=== PATIENT | male | born 1975 | race Caucasian/White ===

== ENCOUNTER 2021-03-30 21:46 | Emergency (ER) | payer MEDICARE, SELFPAY ==
--- NOTE | 2021-03-30 21:54 | PC.NURSE ---
Pt decides not to be seen by provider. Ambulatory out of ED with steady gait.
== END 2021-03-31 02:07 | disposition left against medical advice (07) ==
DX: Z53.21 Procedure and treatment not carried out due to patient leaving prior to being seen by health care provider (principal)
CPT/HCPCS: 99199

== ENCOUNTER 2022-01-24 18:19 | Observation (INO) | payer OTHER, SELFPAY ==
[2022-01-24] VITALS (12 sets, daily range): BP systolic 108–123; BP diastolic 72–87; PULSE 55–75; RESP 16–18; TEMP 36.8–36.9; O2SAT 97–100; BMI 35.9
--- NOTE | ~2022-01-24 | CT_ITS ---
EXAMINATION: CT abdomen pelvis wo con DATE: 01/24/2022 19:16 INDICATION: epigastric pain, nauesa, hx pancreatitis TECHNIQUE: Computed tomography (CT) of the abdomen and pelvis was performed without intravenous contr ast. Automated exposure control and iterative reconstruction technique were employed. The dose-length product was 1323.13 mGy-cm. COMPARISON: None. FINDINGS: Lower thorax: Unremarkable Liver: Hepatomegaly Biliary/Gallbladder: Gallbladder is normal. No bile duct dilation. Pancreas: Edema and surrounding inflammatory change at the head and uncinate process. Spleen: Normal. Adrenals:No mass. Kidneys: No mass, stone, or hydronephrosis. GI tract: No small or large bowel dilation. Normal appendix. Diverticulosis without diverticulitis. Mesentery/Peritoneum: No ascites, mass, or free air. Retroperitoneum: No mass. Mild atherosclerotic abdominal aortic and/or arterial calcifications. Pelvis: Bladder wall thickening. Mild prostatomegaly. Soft Tissues: Soft tissues and body wall unremarkable. Bones: No acute osseous finding. IMPRESSION: Acute pancreatitis. Bladder wall thickening, correlate for history or findings of urinary outlet obst ruction or cystitis, in the absence of either, consider referral for cystoscopy. Reviewed, dictated and finalized at location K. IMPRESSION: Acute pancreatitis. Bladder wall thickening, correlate for history or findings of urinary outlet obstruction or cystitis, in the absence of either, consider r eferral for cystoscopy.
--- NOTE | ~2022-01-24 | US_ITS ---
EXAMINATION: US abdomen limited DATE: 01/25/2022 13:16 INDICATION: Recurrent pancreatitis. TECHNIQUE: Multiple grayscale and Doppler ultrasound images of the abdomen were obtained. COMPARISON: CT abdomen and pelvis 01/24/2022 FINDINGS: The visualized portions of the head and body of the pancreas are normal. The liver is alea l without focal lesion. No liver surface nodularity. There is normal flow in main portal vein. The ga llbladder is normal in size. No gallstones or gallbladder wall thickening. There is no sonographic Mu rphy sign. The common duct is normal and measures 2 mm. IMPRESSION: 1. Normal right upper quadrant ultrasound. Reviewed, dictated and finalized at location A.
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
[2022-01-24 18:56] LABS: Basophils Percent Auto 0.2 % (0.2-1.2); Eosinophils Percent Auto 0.4 % (0-4.4); Hematocrit 42.8 % (42.0-52.0); Hemoglobin 14.4 g/dL (14.0-18.0); Immature Granulocyte Absolute 0.02 K/mm3 (0.00-0.031); Immature Granulocyte Percent A 0.2 % (0-0.5); Lymphocytes Absolute Auto 1.25 K/mm3 (0.9-3.2); Lymphocytes Percent Auto 14.6 % (18.3-44.2); Mean Corpuscular HGB Conc 33.6 g/dl (32-36); Mean Corpuscular Volume 98.2 fl (80-100); Mean Platelet Volume 9.5 fl (7.4-10.4); Monocytes Absolute Auto 0.6 K/mm3 (0.1-0.6); Monocytes Percent Auto 7.5 % (2.6-8.5); Neutrophils Absolute Auto 6.6 K/mm3 (1.3-6.7); Neutrophils Percent Auto 77.1 % (45.5-73.1); Platelet Count Result 231 k/mm3 (150-375); Red Blood Count 4.36 M/mm3 (4.6-6.20); Red Cell Distribution Width 12.5 % (11.5-14.5); White Blood Count 8.6 K/mm3 (4.5-10.0)
[2022-01-24] MEDS: SODIUM CHLORIDE 0.9% IV 1,000 ML 999 ML IV CONT (19:05)
[2022-01-24] MEDS: ONDANSETRON INJ 4 MG/2 ML VIAL IV PUSH (19:05)
[2022-01-24] MEDS: MORPHINE SULFATE (*CRX) 4 MG/ML INJ IV PUSH (19:05)
--- NOTE | 2022-01-24 19:12 | PC.NURSE ---
Report received from LALO Summers. Assumed care of patient at this time. Patient in CT at this time.
[2022-01-24 19:15] LABS: Alanine Aminotransferase 28 U/L (6-50); Albumin Level 4.3 g/dL (3.5-5.1); Alkaline Phosphatase 95 U/L (38-126); Anion Gap 7 mmol/L (8-16); Aspartate Amino Transferase 23 U/L (17-59); Bilirubin,Total 0.9 mg/dL (0.2-1.3); Blood Urea Nitrogen 13 mg/dL (9-20); Calcium 9.5 mg/dL (8.4-10.2); Carbon Dioxide 29 mmol/L (22-30); Chloride 103 mmol/L (98-107); Estimated CRCL calculation 136 ml/min; Estimated Glomerular Filt Rate > 60; Glucose 131 mg/dL (65-110); Lipase 262 U/L (23-300); Sodium 139 mmol/L (137-145)
[2022-01-24 19:53] LABS: Add Urine Microscopic? NO; Appearance Urine Clear (Clear); Bilirubin Urine Negative (Negative); Blood Urine Negative (Negative); Color Urine Yellow (Yellow); Glucose Urine UA Negative (Negative); Ketones Urine Negative (Negative); Leukocyte Esterase Ur Negative LEU/UL (Negative); Nitrate Urine Negative (Negative); Protein Urine Negative (Negative); Specific Grav Ur 1.012 (1.001-1.035); Urobilinogen Urine Negative mg/dL (<2.0)
[2022-01-24] MEDS: HYDROmorphone HCL INJ (*CRX) 1 MG/ML SYR 0.5 MG IV PUSH ×2 (20:36→22:13)
[2022-01-24 20:38] LABS: Amylase 77 U/L (30-110); Lactate Dehydrogenase 147 U/L (120-246); Triglycerides 187 mg/dL (<150)
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
--- NOTE | 2022-01-24 23:30 | ADMGEN ---
This patient, John Granado, was admitted to [facility] Surg Room 330-01. Patient/family oriented to hospital policies and general routines including ID bracelet, bed and alarms, visiting hours, pain management, procedures, bathroom and other care routines, personal items, smoking policy, room service/diet, and visiting hours. Information on how to activate the Rapid Response Team has been discussed. Patient/Family are encouraged to report perceived risks to care and to ask questions if they do not understand what they are told or what they should do.
--- NOTE | 2022-01-25 01:08 | PC.NURSE ---
Pt came from home with mother with a diagnosis of pancreatitis. Pt very cooperative with intake. Pt able to answer all questions for admission. Pt A&Ox4. Pt states he has a little pain. Pt reports having this about 10 years ago. Pt states that he quit smoking 5 years ago and denies any tobacco use. Then pt stated that he vapes occasionally when he feels like he needs nicotine. Pt was listed as a sometimes smoker. Pt placed as a fall risk due to the occasional use of a cane. Will continue to monitor pt.
[2022-01-25] MEDS: HYDROmorphone HCL INJ (*CRX) 1 MG/ML SYR IV PUSH ×6 (02:10→18:04)
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
[2022-01-25] MEDS: DEXTROSE 5%/LACTATED RINGERS 1,000 ML 100 ML IV CONT (05:34)
[2022-01-25 06:46] VITALS: BP 111/79; PULSE 70; RESP 18; TEMP 36.4; O2SAT 96
[2022-01-25 07:49] LABS: Glucose Point of Care 148 mg/dl (65-105)
[2022-01-25] MEDS: ENOXAPARIN 40 MG/0.4 ML SYRINGE SUB-Q (08:05)
[2022-01-25 11:27] LABS: Glucose Point of Care 132 mg/dl (65-105)
--- NOTE | 2022-01-25 11:45 | PM.IMPN ---
Progress Note: A&P Assessment and Plan (1) Acute pancreatitis: Code(s): K85.90 - Acute pancreatitis without necrosis or infection, unspecified Status: Acute Assessment and Plan: Advance diet to clears Get RUQ ultrasound since he has recurrent pancreatitis CT shows acute pancreatitis IV fluids pain management Lipase 262 (2) Uncontrolled type 2 diabetes mellitus with hyperglycemia: Code(s): E11.65 - Type 2 diabetes mellitus with hyperglycemia Status: Acute Assessment and Plan: Accu-Cheks every 6 hours insulin sliding scale as needed Glucose is 131 Hypoglycemia protocol Trend glucose Adjust therapy as indicated (3) Morbid obesity with BMI of 40.0-44.9, adult: Code(s): E66.01 - Morbid (severe) obesity due to excess calories; Z68.41 - Body mass index [BMI] 40.0-44.9, adult Status: Acute Assessment and Plan: patient is on it diet has lost over 30 lb intentionally (4) Osteoarthritis, multiple sites: Qualifiers: Osteoarthritis type: unspecified Qualified Code(s): M15.9 - Polyosteoarthritis, unspecified Code(s): M15.9 - Polyosteoarthritis, unspecified Status: Acute Assessment and Plan: Tylenol as needed (5) Nicotine abuse: Code(s): Z72.0 - Tobacco use Status: Acute Assessment and Plan: nicotine patch as needed Time Spent With Patient Time with patient: Greater than 35 minutes Subjective Date/time seen: 01/25/22 1145 Interval history: 01/25/22 1145 Patient is having a bit of a moment today. Patient is frustrated because he wants something to drink and eat. He did state that he has had pancreatitis in the past. Right upper quadrant ultrasound has been ordered to assess further into the gallbladder. Lipase was unremarkable at 260 to. He still having 7/10 pain that wraps around to his back which could be from retention however he states that he does not feel like he has retention. Will get a post residual void. In tizanidine has been added for further comfort. 01/24/22? 20:49 ?This is a 46-year-old male with past medical history significant for morbid obesity, type diabetes mellitus, non-insulin dependent, osteoarthritis of the shoulders bilaterally.? Patient comes to the emergency room due to sudden onset of epigastric pain that started in the morning progressively got worse over the course of the day had some nausea but no vomiting, pain is localized to the epigastric area and radiates around to the back, is only relieved by pain medication, patient has not been able to eat all day secondary to these. patient denies any fevers, rigors, chills, cough, sputum production has lost 30 lb intentionally.? Preliminary workup was significant for? CT of abdomen and pelvis was reported as: IMPRESSION: Acute pancreatitis. Bladder wall thickening, correlate for history or findings of urinary outlet obstruction or cystitis, in the absence of either, consider referral for cystoscopy. Review of Systems Review of Systems: All systems reviewed & are unremarkable except as noted in HPI and below Exam Const: General: comfortable, no acute distress, well developed, alert, awake and average body habitus Nutritional Appearance: average body habitus Orientation/consciousness: patient oriented x3 HENMT: Head: normal to inspection, normocephalic and atraumatic Ears: hearing grossly normal bilaterally Face/Nose/Sinus: normal facial exam Face and sinus: normal facial exam Eyes: General: appearance normal, both eyes and all related structures Pupils: Equal, round and reactive pupils present EOM: EOMs intact bilaterally Neck: Neck: full ROM, no lymphadenopathy and no JVD Thyroid: thyroid normal Lymphatic: no lymphadenopathy noted Resp: Effort & Inspection: normal respiratory effort and able to speak in complete sentences Auscultation: clear to auscultation bilaterally Cardio: Jugular ve
[2022-01-25 17:30] VITALS: BP 123/73; PULSE 78; RESP 20; TEMP 36.1; O2SAT 97
--- NOTE | 2022-01-25 20:45 | PC.NURSE ---
patient bladder scanned at 1735. patient had 350 prior to urinating, voided in bathroom and did not measure urine output. bladder scan after void was 150.
--- NOTE | 2022-01-25 20:46 | P.PNCROSS_ITS ---
Event Note Event Note Event Note: Call received from the patient's nurse. The patient was started on a clear liq uid diet and today and has done okay with that. In fact he is feeling much better and is requesting an advance in diet. We will go ahead and transition him to a low-fat diet and discontinue IV narcotics. Acetaminophen and [place] are available if needed. If his pain returns he will need to go back to being NPO status though it sounds like he is much better and should be able to be discharged in the morning.
[2022-01-25 21:04] VITALS: BP 120/84; PULSE 73; RESP 24; TEMP 36.4; O2SAT 100
[2022-01-25] MEDS: HYDROcodone/acetaminophen (*CRX) 5-325 MG TABLET 1 TAB PO (21:49)
[2022-01-26] MEDS: HYDROcodone/acetaminophen (*CRX) 5-325 MG TABLET 1 TAB PO ×2 (03:25→09:03)
[2022-01-26 05:32] VITALS: BP 107/66; PULSE 57; RESP 20; TEMP 36.9; O2SAT 98
[2022-01-26 06:20] LABS: Glucose Point of Care 133 mg/dl (65-105)
[2022-01-26 06:40] LABS: Basophils Percent Auto 0.3 % (0.2-1.2); Eosinophils Percent Auto 0.6 % (0-4.4); Hematocrit 45.6 % (42.0-52.0); Immature Granulocyte Absolute 0.02 K/mm3 (0.00-0.031); Immature Granulocyte Percent A 0.3 % (0-0.5); Lymphocytes Absolute Auto 1.36 K/mm3 (0.9-3.2); Lymphocytes Percent Auto 21.2 % (18.3-44.2); Mean Corpuscular HGB Conc 32.9 g/dl (32-36); Mean Corpuscular Volume 100.2 fl (80-100); Mean Platelet Volume 9.7 fl (7.4-10.4); Monocytes Absolute Auto 0.6 K/mm3 (0.1-0.6); Monocytes Percent Auto 9.5 % (2.6-8.5); Neutrophils Absolute Auto 4.4 K/mm3 (1.3-6.7); Neutrophils Percent Auto 68.1 % (45.5-73.1); Platelet Count Result 247 k/mm3 (150-375); Red Blood Count 4.55 M/mm3 (4.6-6.20); Red Cell Distribution Width 12.3 % (11.5-14.5); White Blood Count 6.4 K/mm3 (4.5-10.0)
[2022-01-26 06:59] LABS: Alanine Aminotransferase 25 U/L (6-50); Albumin Level 4.4 g/dL (3.5-5.1); Alkaline Phosphatase 106 U/L (38-126); Anion Gap 10 mmol/L (8-16); Aspartate Amino Transferase 22 U/L (17-59); Bilirubin,Total 1.2 mg/dL (0.2-1.3); Blood Urea Nitrogen 10 mg/dL (9-20); Calcium 9.1 mg/dL (8.4-10.2); Carbon Dioxide 29 mmol/L (22-30); Chloride 101 mmol/L (98-107); Estimated CRCL calculation 136 ml/min; Estimated Glomerular Filt Rate > 60; Glucose 122 mg/dL (65-110); Lipase 255 U/L (23-300); Magnesium 2.1 mg/dL (1.6-2.3); Potassium 3.8 mmol/L (3.4-5.0); Sodium 140 mmol/L (137-145)
[2022-01-26 08:00] VITALS: PULSE 57; RESP 20; O2SAT 97
[2022-01-26 08:25] VITALS: O2SAT 97
--- NOTE | 2022-01-26 11:00 | PM.DS ---
DS: Admitting Diagnosis Discharge Date 01/26/22 11:00 Admitting Diagnosis Acute pancreatitis/urine outlet obstruction DS: Discharge Diagnosis Discharge Diagnosis (1) Acute pancreatitis: Code(s): K85.90 - Acute pancreatitis without necrosis or infection, unspecified Status: Acute Assessment and Plan: Advance diet to clears Get RUQ ultrasound since he has recurrent pancreatitis CT shows acute pancreatitis IV fluids pain management Lipase 255 (2) Uncontrolled type 2 diabetes mellitus with hyperglycemia: Code(s): E11.65 - Type 2 diabetes mellitus with hyperglycemia Status: Acute Assessment and Plan: Accu-Cheks every 6 hours insulin sliding scale as needed Glucose is 131 Hypoglycemia protocol Trend glucose Adjust therapy as indicated A1c 6.3 (3) Morbid obesity with BMI of 40.0-44.9, adult: Code(s): E66.01 - Morbid (severe) obesity due to excess calories; Z68.41 - Body mass index [BMI] 40.0-44.9, adult Status: Acute Assessment and Plan: patient is on it diet has lost over 30 lb intentionally (4) Osteoarthritis, multiple sites: Qualifiers: Osteoarthritis type: unspecified Qualified Code(s): M15.9 - Polyosteoarthritis, unspecified Code(s): M15.9 - Polyosteoarthritis, unspecified Status: Acute Assessment and Plan: Tylenol as needed (5) Nicotine abuse: Code(s): Z72.0 - Tobacco use Status: Acute Assessment and Plan: nicotine patch as needed (6) Bladder outlet obstruction: Code(s): N32.0 - Bladder-neck obstruction Status: Acute Assessment and Plan: Ct indicated a bladder outlet obstruction Flomax started Contacted and talked to Urology who is recommending outpatient follow up DS: Summary Hospital Course Hospital Course: Patient is a 46-year-old male with diabetes, arthritis, anxiety, hyperlipidemia who presented to the ED with complaints of epigastric pain radiating to the back. Abdominal CT showed acute pancreatitis and possible outlet obstruction. Patient was started on IV fluids. Lipase is been relatively stable in 250. Glucose has been well below 200. A1c was 6.3. Patient has been having pain control with IV pain medications however pain has subsided and patient has been able to tolerate a low-fat diet. Right upper quadrant ultrasound was performed and showed normal gallbladder. Patient feels pretty good and is ready to go. I did consult with Urology who stated that the patient can follow up outpatient for the possible obstruction. Labs and vital signs are stable at this time. Patient denies any chest pain, shortness a breath, nausea, vomiting, diarrhea, constipation, weakness or fatigue. Status at Discharge Functional status at discharge: independent ambulation Overall status at discharge: patient is progressing back to baseline Time Spent with Patient Time attestation: Total time spent providing and/or coordinating discharge services: 37 minutes Time spent: Greater than 30 minutes Specific discharge activities: Diagnostic testing, chart review, developing a treatment plan, education, care coordination documentation, physical exam, result review Exam Const: General: comfortable, no acute distress, well developed, alert, awake and average body habitus Nutritional Appearance: average body habitus Orientation/consciousness: patient oriented x3 HENMT: Head: normal to inspection, normocephalic and atraumatic Ears: hearing grossly normal bilaterally Face/Nose/Sinus: normal facial exam Face and sinus: normal facial exam Eyes: General: appearance normal, both eyes and all related structures Pupils: Equal, round and reactive pupils present EOM: EOMs intact bilaterally Neck: Neck: full ROM, no lymphadenopathy and no JVD Thyroid: thyroid normal Lymphatic: no lymphadenopathy noted Resp:
[2022-01-26 11:37] LABS: Glucose Point of Care 132 mg/dl (65-105)
[2022-01-26 11:45] LABS: Hemoglobin A1C 6.3 % (<5.7)
== END 2022-01-26 13:20 | disposition home or self-care (01) ==
LOC: ANHED 20:58 → ANH3MEDSUR 21:31
PROVIDERS: Nurse Practitioner; Physician Assistant; Admitting Provider Internal Medicine; Emergency Provider General Practice; PCP Family Medicine; Visit Provider Internal Medicine
DX: K85.90 Acute pancreatitis without necrosis or infection, unspecified (principal); E11.65 Type 2 diabetes mellitus with hyperglycemia; E66.01 Morbid (severe) obesity due to excess calories; Z68.35 Body mass index [BMI] 35.0-35.9, adult; M15.9 Polyosteoarthritis, unspecified; F17.290 Nicotine dependence, other tobacco product, uncomplicated; N32.0 Bladder-neck obstruction; E78.5 Hyperlipidemia, unspecified; F41.9 Anxiety disorder, unspecified; M47.816 Spondylosis without myelopathy or radiculopathy, lumbar region; F10.90 Alcohol use, unspecified, uncomplicated; Z79.84 Long term (current) use of oral hypoglycemic drugs; Z79.899 Other long term (current) drug therapy
CPT/HCPCS: 36415; 74176; 76705; 80053; 81003; 82150; 82948; 83036; 83605; 83615; 83690; 83735; 84478; 85025; 96361; 96372; 96374; 96375; 96376; 99285; A9270; G0378; J1170; J1650; J2270; J2405; J7030; J7121

== ENCOUNTER 2023-08-28 21:04 | Observation (INO) | payer OTHER, SELFPAY ==
--- NOTE | ~2023-08-28 | XR_ITS ---
Clinical Indication: Epigastric pain PA and lateral views of the chest: Comparison: None Findings: The lungs are clear, without evidence of focal consolidation or pleural effusion. Cardiome diastinal silhouette is within normal limits. Bones and soft tissues are unremarkable. Impression: Normal chest. Reviewed, dictated and finalized at location . Impression: Normal chest.
--- NOTE | ~2023-08-28 | US_ITS ---
EXAMINATION: US abdomen limited DATE: 08/29/2023 10:18 INDICATION: Abdominal pain. TECHNIQUE: Multiple grayscale and Doppler ultrasound images of the abdomen were obtained. COMPARISON: CT 08/28/2023 FINDINGS: The visualized portion of head of the pancreas is normal. There is diffuse hepatic steatosi s. There is normal flow in main portal vein. The gallbladder is normal in size and contains sludge. N o visible gallstones. No gallbladder wall thickening or sonographic Hoyt sign. The common duct is n ormal and measures 3 mm. IMPRESSION: 1. Gallbladder sludge. No evidence of acute cholecystitis. 2. Diffuse hepatic steatosis. Reviewed, dictated and finalized at location A.
--- NOTE | ~2023-08-28 | CT_ITS ---
Clinical Indication: Abdominal pain CT Scan of the Chest, Abdomen, and Pelvis without Contrast: Technique: Contiguous sections were acquired throughout the chest, abdomen, and pelvis without IV con trast administration. Dose reduction technique was used on this scan by utilizing automated exposure control and iterative reconstruction technique. The dose-length product (DLP) was 1920.67 mGy-cm. COMPARISON: 01/24/2022 Findings: There is no evidence of any significant mediastinal, hilar or axillary lymphadenopathy. Coronary yvette ry calcifications are present. No aortic aneurysm. There is no evidence of pleural or pericardial effusion. The lungs are clear. No pulmonary nodules or infiltrates are noted. The liver, spleen, gallbladder, adrenals and kidneys are within normal limits. There is probable mini mal inflammatory change and infiltrative change about the pancreatic tail extending towards the splen ic hilum, most compatible with findings of mild acute pancreatitis. No evidence of aortic aneurysm. No lymphadenopathy. No bowel obstruction or bowel wall thickening. There is no evidence to suggest acute appendicitis. Urinary bladder is unremarkable. No pelvic mass seen. No ascites. Impression: Mild acute pancreatitis at the pancreatic tail region. Correlate clinically. No other significant findings. Reviewed, dictated and finalized at location . Impression: Mild acute pancreatitis at the pancreatic tail region. Correlate clinically. No other significant findings.
[2023-08-28 21:24] VITALS: BP 149/85; PULSE 94; RESP 18; TEMP 36.6; O2SAT 100
[2023-08-28 21:38] LABS: Basophils Percent Auto 0.3 % (0.2-1.2); Eosinophils Percent Auto 0.3 % (0-4.4); Hematocrit 44.2 % (42.0-52.0); Immature Granulocyte Absolute 0.03 K/mm3 (0.00-0.031); Immature Granulocyte Percent A 0.4 % (0-0.5); Lymphocytes Absolute Auto 0.87 K/mm3 (0.9-3.2); Lymphocytes Percent Auto 11.2 % (18.3-44.2); Mean Corpuscular HGB Conc 36.2 g/dl (32-36); Mean Corpuscular Hemoglobin 33.6 pg (26-34); Mean Corpuscular Volume 92.9 fl (80-100); Mean Platelet Volume 9.8 fl (7.4-10.4); Monocytes Absolute Auto 0.7 K/mm3 (0.1-0.6); Monocytes Percent Auto 9.6 % (2.6-8.5); Neutrophils Absolute Auto 6.1 K/mm3 (1.3-6.7); Neutrophils Percent Auto 78.2 % (45.5-73.1); Platelet Count Result 220 k/mm3 (150-375); Red Blood Count 4.76 M/mm3 (4.6-6.20); Red Cell Distribution Width 13.1 % (11.5-14.5); White Blood Count 7.7 K/mm3 (4.5-10.0)
[2023-08-28 21:40] LABS: Appearance Urine Clear (Clear); Bilirubin Urine Negative (Negative); Blood Urine Negative (Negative); Color Urine Yellow (Yellow); Glucose Urine UA 3+ mg/dL (Negative); Ketones Urine Trace mg/dL (Negative); Leukocyte Esterase Ur Negative LEU/UL (Negative); Nitrate Urine Negative (Negative); Protein Urine Negative (Negative); Urobilinogen Urine 0.2 mg/dL (<2.0); pH Urine 5.5 (5.0-9.0)
[2023-08-28 21:52] LABS: Add Urine Microscopic? NO
--- NOTE | 2023-08-28 23:07 | ECG_ITS ---
SEE SCANNED COPY FOR CONFIRMED REPORT MTDD
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
[2023-08-28] MEDS: SODIUM CHLORIDE 0.9% IV 1,000 ML 999 ML IV CONT (23:22)
[2023-08-28] MEDS: ONDANSETRON INJ 4 MG/2 ML VIAL IV PUSH (23:22)
[2023-08-28] MEDS: MORPHINE SULFATE (*CRX) 4 MG/ML INJ IV PUSH (23:22)
[2023-08-29] VITALS (7 sets, daily range): BP systolic 115–136; BP diastolic 69–85; PULSE 88–100; RESP 14–20; TEMP 36.4–37.7; O2SAT 95–100; BMI 41.3
[2023-08-29] MEDS: HYDROmorphone HCL INJ (*CRX) 1 MG/ML SYR 0.5 MG IV PUSH ×2 (00:22→03:46)
[2023-08-29 02:17] LABS: Lactic Acid Reflex 0.7 mmol/L (0.7-2.0)
[2023-08-29 02:52] LABS: INR 0.9; Prothrombin Time 12.6 Seconds (11.1-14.7)
[2023-08-29 02:53] LABS: Partial Thromboplastin Time 25.4 Seconds (22.3-36.8)
[2023-08-29 03:10] LABS: Troponin I < 0.012 ng/mL (0.000-0.034)
[2023-08-29 03:11] LABS: Alanine Aminotransferase 26 U/L (6-50); Albumin Level 3.9 g/dL (3.5-5.1); Alkaline Phosphatase 99 U/L (38-126); Anion Gap 9 mmol/L (4-12); Aspartate Amino Transferase 26 U/L (17-59); Bilirubin,Total 1.2 mg/dL (0.2-1.3); Blood Urea Nitrogen 11 mg/dL (9-20); Calcium 8.6 mg/dL (8.4-10.2); Carbon Dioxide 19 mmol/L (22-30); Chloride 103 mmol/L (98-107); Estimated CRCL calculation 163 ml/min; Estimated Glomerular Filt Rate > 60; Glucose 273 mg/dL (65-110); Potassium 4.2 mmol/L (3.4-5.0); Sodium 131 mmol/L (137-145)
[2023-08-29] MEDS: SODIUM CHLORIDE 0.9% IV 1,000 ML 999 ML IV CONT (03:46)
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
--- NOTE | 2023-08-29 04:50 | ADMGEN ---
This patient, John Granado, was admitted to [facility] Surg Room 331-02. Patient/family oriented to hospital policies and general routines including ID bracelet, bed and alarms, visiting hours, pain management, procedures, bathroom and other care routines, personal items, smoking policy, room service/diet, and visiting hours. Information on how to activate the Rapid Response Team has been discussed. Patient/Family are encouraged to report perceived risks to care and to ask questions if they do not understand what they are told or what they should do.
[2023-08-29 04:56] LABS: Lipase 801 U/L (23-300)
[2023-08-29 04:57] LABS: Triglycerides 2251 mg/dL (<150)
[2023-08-29] MEDS: HYDROmorphone HCL INJ (*CRX) 1 MG/ML SYR IV PUSH ×4 (05:13→17:00)
[2023-08-29] MEDS: SODIUM CHLORIDE 0.9% IV 1,000 ML 125 ML IV CONT ×2 (05:16→17:18)
[2023-08-29 08:12] LABS: Glucose Point of Care 277 mg/dl (65-105)
[2023-08-29] MEDS: FENOFIBRATE 160 MG TABLET PO (08:41)
[2023-08-29] MEDS: INSULIN ASPART (*BKC) 100 UNITS/ML SUB-Q ×3 (08:41→18:26)
[2023-08-29] MEDS: ATORVASTATIN 40 MG TABLET PO (08:41)
[2023-08-29 11:44] LABS: Glucose Point of Care 229 mg/dl (65-105)
[2023-08-29] MEDS: ENOXAPARIN 40 MG/0.4 ML SYRINGE SUB-Q (11:46)
[2023-08-29 12:13] LABS: Alanine Aminotransferase 23 U/L (6-50); Albumin Level 3.8 g/dL (3.5-5.1); Alkaline Phosphatase 97 U/L (38-126); Anion Gap 5 mmol/L (4-12); Aspartate Amino Transferase 24 U/L (17-59); Bilirubin,Total 1.4 mg/dL (0.2-1.3); Blood Urea Nitrogen 9 mg/dL (9-20); Calcium 8.5 mg/dL (8.4-10.2); Carbon Dioxide 24 mmol/L (22-30); Chloride 102 mmol/L (98-107); Estimated CRCL calculation 165 ml/min; Estimated Glomerular Filt Rate > 60; Glucose 218 mg/dL (65-110); Lipase 430 U/L (23-300); Potassium 4.1 mmol/L (3.4-5.0); Sodium 131 mmol/L (137-145)
[2023-08-29 13:29] LABS: Hemoglobin A1C 11.5 % (<5.7)
--- NOTE | 2023-08-29 14:38 | PM.IMPN ---
Progress Note: A&P Assessment and Plan (1) Pancreatitis: Qualifiers: Acute pancreatitis complication: no infection or necrosis Chronicity: acute Pancreatitis type: unspecified pancreatitis type Qualified Code(s): K85.90 - Acute pancreatitis without necrosis or infection, unspecified Code(s): K85.90 - Acute pancreatitis without necrosis or infection, unspecified Status: Acute Assessment and Plan: Patient presents with abdominal pain. Lipase was 800. LFTs are normal. CT of the abdomen and pelvis showed mild acute pancreatitis at the pancreatic tail region but no other significant abnormalities. RUQ US shows gallbladder sludge no evidence of acute cholecystitis. He does have diffuse hepatic steatosis. Triglycerides 2250 probably related to uncontrolled DM. He denies drinking alcohol. Suspected etiology of pancreatitis related to hypertriglyceridemia. Lipase trending downward. Will add fenofibrate and Lipitor. Start clear liquid diet (2) Uncontrolled type 2 diabetes mellitus with hyperglycemia: Code(s): E11.65 - Type 2 diabetes mellitus with hyperglycemia Status: Acute Assessment and Plan: A1c 11.5. The patient's blood glucose was reviewed on 08/28 Glucose remains poorly controlled Continue AccuCheks covering with sliding scale. Hypoglycemia protocol available as needed. Continue to monitor. Hold glipizide and metformin for now Had Lantus. diesel powerplant mechanic and dietitian consult (3) Morbid obesity with BMI of 40.0-44.9, adult: Code(s): E66.01 - Morbid (severe) obesity due to excess calories; Z68.41 - Body mass index [BMI] 40.0-44.9, adult Status: Acute Assessment and Plan: This is contributing to his other medical problems. Healthy lifestyle choices were discussed (4) Osteoarthritis, multiple sites: Qualifiers: Osteoarthritis type: unspecified Qualified Code(s): M15.9 - Polyosteoarthritis, unspecified Code(s): M15.9 - Polyosteoarthritis, unspecified Status: Acute Assessment and Plan: Tylenol p.r.n. (5) TABATHA (obstructive sleep apnea): Code(s): G47.33 - Obstructive sleep apnea (adult) (pediatric) Status: Acute Assessment and Plan: Patient states he feels tired all the time. Explain that it most likely is related to his untreated sleep apnea. Offered to start Auto-PAP here for but he declines. (6) Tobacco abuse: Code(s): Z72.0 - Tobacco use Status: Acute Assessment and Plan: Patient was educated about the benefits of smoking cessation Plan DVT prophylaxis -Lovenox Code status -full Subjective Date/time seen: 08/29/23 14:38 Interval history: 48yo male with DM, tobacco abuse and anxiety here for abdominal pain. Patient feels tired today. He slept poorly last night. His abdominal pain is 5/10. No chest pain or shortness of breath. He is having nausea but no vomiting. No cough. He initially states he has has chronic diarrhea but then states he has bowel movements once every 1-2 weeks. Deneis stool accidents Exam Narrative: AF 97.6 131/77 95 18 99% ra Gen - NARD Chest - CTA bilaterally, nml RR CV - RRR S1/S2 Abd - Soft, obese, iffusely tender Ext - No pedal edema. 2+ PT pulses bilaterally. Neuro - Alert and oriented. Nonfocal exam. Psych - Nml mood and affect Skin - Warm and dry Objective Data Vital Signs Vital Signs: Vital Signs - 24 hr 08/28/23 21:24 08/29/23 01:33 08/29/23 03:47 Temperature 97.9 F Pulse Rate 94 100 88 Respiratory Rate 18 15 14 Blood Pressure 149/85 H 123/84 136/85 Pulse Oximetry 100 100 99 Oxygen Delivery Room Air 08/29/23 04:28 08/29/23 04:58 08/29/23 05:28 Temperature 97.6 F Pulse Rate 99 95 Respiratory Rate 15 18 Blood Pressure 135/80 131/77 Pulse Oximetry 99 99 Oxygen Delivery Room Air Intake/Output Intake/Output: Intake & Output 08/26/23 08/27/23 08/28/23
[2023-08-29] MEDS: ONDANSETRON INJ 4 MG/2 ML VIAL IV PUSH (17:00)
[2023-08-29 17:05] LABS: Glucose Point of Care 298 mg/dl (65-105)
[2023-08-29 18:27] LABS: Glucose Point of Care 307 mg/dl (65-105)
[2023-08-29 20:08] LABS: Glucose Point of Care 237 mg/dl (65-105)
[2023-08-29] MEDS: INSULIN GLARGINE (*BKC) 100 UNITS/ML 10 UNITS SUB-Q (20:24)
[2023-08-29] MEDS: HYDROcodone/acetaminophen (*CRX) 5-325 MG TABLET 1 TAB PO (23:30)
[2023-08-30 05:24] VITALS: BP 112/60; PULSE 93; RESP 16; TEMP 36.3; O2SAT 95
[2023-08-30] MEDS: SODIUM CHLORIDE 0.9% IV 1,000 ML 70 ML IV CONT ×2 (05:27→18:05)
[2023-08-30] MEDS: HYDROcodone/acetaminophen (*CRX) 5-325 MG TABLET 1 TAB PO ×3 (05:28→20:47)
[2023-08-30 06:42] LABS: Basophils Percent Auto 0.1 % (0.2-1.2); Eosinophils Percent Auto 0.2 % (0-4.4); Hematocrit 45.4 % (42.0-52.0); Immature Granulocyte Absolute 0.04 K/mm3 (0.00-0.031); Immature Granulocyte Percent A 0.4 % (0-0.5); Lymphocytes Absolute Auto 0.63 K/mm3 (0.9-3.2); Lymphocytes Percent Auto 6.9 % (18.3-44.2); Mean Corpuscular Hemoglobin 32.5 pg (26-34); Mean Corpuscular Volume 98.3 fl (80-100); Mean Platelet Volume 9.8 fl (7.4-10.4); Monocytes Absolute Auto 0.9 K/mm3 (0.1-0.6); Monocytes Percent Auto 9.8 % (2.6-8.5); Neutrophils Absolute Auto 7.5 K/mm3 (1.3-6.7); Neutrophils Percent Auto 82.6 % (45.5-73.1); Platelet Count Result 186 k/mm3 (150-375); Red Blood Count 4.62 M/mm3 (4.6-6.20); Red Cell Distribution Width 13.1 % (11.5-14.5); White Blood Count 9.1 K/mm3 (4.5-10.0)
[2023-08-30 07:00] LABS: Alanine Aminotransferase 19 U/L (6-50); Alkaline Phosphatase 110 U/L (38-126); Anion Gap 9 mmol/L (4-12); Aspartate Amino Transferase 20 U/L (17-59); Blood Urea Nitrogen 6 mg/dL (9-20); Calcium 8.9 mg/dL (8.4-10.2); Carbon Dioxide 21 mmol/L (22-30); Chloride 103 mmol/L (98-107); Cholesterol 273 mg/dL (0-200); Estimated CRCL calculation 165 ml/min; Estimated Glomerular Filt Rate > 60; Glucose 225 mg/dL (65-110); Lipase 254 U/L (23-300); Potassium 3.9 mmol/L (3.4-5.0); Sodium 133 mmol/L (137-145)
[2023-08-30 07:10] LABS: LDL Cholesterol Direct 45 mg/dL
[2023-08-30 07:12] LABS: Triglycerides 816 mg/dL (<150)
[2023-08-30 07:44] LABS: Glucose Point of Care 228 mg/dl (65-105)
[2023-08-30 08:00] VITALS: RESP 22; O2SAT 98
[2023-08-30] MEDS: ATORVASTATIN 40 MG TABLET PO (09:31)
[2023-08-30] MEDS: FENOFIBRATE 160 MG TABLET PO (09:31)
[2023-08-30] MEDS: INSULIN ASPART (*BKC) 100 UNITS/ML SUB-Q ×3 (09:32→18:00)
[2023-08-30] MEDS: ENOXAPARIN 40 MG/0.4 ML SYRINGE SUB-Q (09:32)
[2023-08-30 11:27] LABS: Glucose Point of Care 228 mg/dl (65-105)
--- NOTE | 2023-08-30 13:15 | PM.IMPN ---
Progress Note: A&P Assessment and Plan (1) Pancreatitis: Qualifiers: Acute pancreatitis complication: no infection or necrosis Chronicity: acute Pancreatitis type: unspecified pancreatitis type Qualified Code(s): K85.90 - Acute pancreatitis without necrosis or infection, unspecified Code(s): K85.90 - Acute pancreatitis without necrosis or infection, unspecified Status: Acute Assessment and Plan: Patient presents with abdominal pain. Lipase was 800. LFTs are normal. CT of the abdomen and pelvis showed mild acute pancreatitis at the pancreatic tail region but no other significant abnormalities. RUQ US shows gallbladder sludge no evidence of acute cholecystitis. He does have diffuse hepatic steatosis. Triglycerides 2250 probably related to uncontrolled DM. He denies drinking alcohol. Suspected etiology of pancreatitis related to hypertriglyceridemia. Lipase trending downward. Will add fenofibrate and Lipitor. advance diet from clears to dm diet (2) Uncontrolled type 2 diabetes mellitus with hyperglycemia: Code(s): E11.65 - Type 2 diabetes mellitus with hyperglycemia Status: Acute Assessment and Plan: A1c 11.5. The patient's blood glucose was reviewed on 08/28 Glucose remains poorly controlled Continue AccuCheks covering with sliding scale. Hypoglycemia protocol available as needed. Continue to monitor. Hold glipizide and metformin for now Had Lantus. director social welfare and dietitian consult (3) Morbid obesity with BMI of 40.0-44.9, adult: Code(s): E66.01 - Morbid (severe) obesity due to excess calories; Z68.41 - Body mass index [BMI] 40.0-44.9, adult Status: Acute Assessment and Plan: This is contributing to his other medical problems. Healthy lifestyle choices were discussed (4) Osteoarthritis, multiple sites: Qualifiers: Osteoarthritis type: unspecified Qualified Code(s): M15.9 - Polyosteoarthritis, unspecified Code(s): M15.9 - Polyosteoarthritis, unspecified Status: Acute Assessment and Plan: Tylenol p.r.n. (5) TABATHA (obstructive sleep apnea): Code(s): G47.33 - Obstructive sleep apnea (adult) (pediatric) Status: Acute Assessment and Plan: Patient states he feels tired all the time. Explain that it most likely is related to his untreated sleep apnea. Offered to start Auto-PAP here for but he declines. (6) Tobacco abuse: Code(s): Z72.0 - Tobacco use Status: Acute Assessment and Plan: Patient was educated about the benefits of smoking cessation Subjective Date/time seen: 08/30/23 13:15 Interval history: 48yo male with DM, tobacco abuse and anxiety here for abdominal pain. pt admitted for pancreatis complains of headache today not had a bm for a few days Review of Systems Review of Systems: constipation and ARTHUR Exam Narrative: GEn: younger male tired with headache Chest - CTA bilaterally, nml RR CV - RRR S1/S2 Abd - Soft, obese, iffusely tender Ext - No pedal edema. 2+ PT pulses bilaterally. Neuro - Alert and oriented. Nonfocal exam. Psych - Nml mood and affect Skin - Warm and dry Objective Data Vital Signs Vital Signs: Vital Signs - 24 hr 08/29/23 14:00 08/29/23 20:12 08/30/23 05:24 Temperature 37.7 C H 36.4 C 36.3 C L Pulse Rate 94 97 93 Respiratory Rate 20 16 16 Blood Pressure 136/85 115/69 112/60 Pulse Oximetry 97 95 95 Intake/Output Intake/Output: Intake & Output 08/27/23 08/28/23 08/29/23 08/30/23 23:59 23:59 23:59 23:59 Intake Total 4065.4 1354.6 Output Total 0 2175 Balance 4065.4 -820.4 Meds/Results Medications: Active Medications Generic Name Dose Route Start Last Admin Trade Name Freq PRN Reason Stop Dose Admin Acetaminophen 650 mg 08/29/23 14:54 Acetaminophen 325 Mg Tablet PO Q6H PRN Mild Pain (1-3) or Fever Hydrocodone Bitart/Acetaminophen 1 tab
[2023-08-30 14:00] VITALS: BP 125/85; PULSE 110; RESP 22; TEMP 36.1; O2SAT 98
[2023-08-30 15:41] LABS: Anion Gap 7 mmol/L (4-12); Blood Urea Nitrogen 9 mg/dL (9-20); Calcium 9.3 mg/dL (8.4-10.2); Carbon Dioxide 24 mmol/L (22-30); Chloride 103 mmol/L (98-107); Estimated CRCL calculation 165 ml/min; Estimated Glomerular Filt Rate > 60; Glucose 274 mg/dL (65-110); Lipase 235 U/L (23-300); Potassium 4.2 mmol/L (3.4-5.0); Sodium 134 mmol/L (137-145)
[2023-08-30 16:23] LABS: Glucose Point of Care 263 mg/dl (65-105)
[2023-08-30 18:00] VITALS: TEMP 37.8
[2023-08-30] MEDS: ACETAMINOPHEN 325 MG TABLET 650 MG PO (18:00)
[2023-08-30 20:26] LABS: Glucose Point of Care 295 mg/dl (65-105)
[2023-08-30] MEDS: INSULIN GLARGINE (*BKC) 100 UNITS/ML 10 UNITS SUB-Q (20:46)
[2023-08-30] MEDS: DOCUSATE SODIUM 100 MG CAPSULE PO (20:47)
[2023-08-30 20:55] VITALS: BP 126/83; PULSE 104; RESP 18; TEMP 36.9; O2SAT 96
[2023-08-31] MEDS: SODIUM CHLORIDE 0.9% IV 1,000 ML 70 ML IV CONT (04:40)
[2023-08-31 05:33] VITALS: BP 135/79; PULSE 92; RESP 18; TEMP 36.7; O2SAT 97
[2023-08-31] MEDS: HYDROcodone/acetaminophen (*CRX) 5-325 MG TABLET 1 TAB PO (05:39)
[2023-08-31 05:40] LABS: Anion Gap 9 mmol/L (4-12); Blood Urea Nitrogen 9 mg/dL (9-20); Calcium 8.7 mg/dL (8.4-10.2); Carbon Dioxide 23 mmol/L (22-30); Chloride 104 mmol/L (98-107); Estimated CRCL calculation 165 ml/min; Estimated Glomerular Filt Rate > 60; Glucose 214 mg/dL (65-110); Lipase 194 U/L (23-300); Sodium 136 mmol/L (137-145)
[2023-08-31 08:03] LABS: Glucose Point of Care 217 mg/dl (65-105)
[2023-08-31] MEDS: FENOFIBRATE 160 MG TABLET PO (08:29)
[2023-08-31] MEDS: DOCUSATE SODIUM 100 MG CAPSULE PO (08:29)
[2023-08-31] MEDS: ATORVASTATIN 40 MG TABLET PO (08:30)
[2023-08-31] MEDS: INSULIN ASPART (*BKC) 100 UNITS/ML SUB-Q ×2 (08:30→11:55)
[2023-08-31 11:47] LABS: Glucose Point of Care 268 mg/dl (65-105)
--- NOTE | 2023-08-31 13:05 | PM.DS ---
DS: Admitting Diagnosis Discharge Date 08/31/2023 Admitting Diagnosis Abdominal pain DS: Discharge Diagnosis Discharge Diagnosis (1) Pancreatitis: Qualifiers: Acute pancreatitis complication: no infection or necrosis Chronicity: acute Pancreatitis type: unspecified pancreatitis type Qualified Code(s): K85.90 - Acute pancreatitis without necrosis or infection, unspecified Code(s): K85.90 - Acute pancreatitis without necrosis or infection, unspecified Status: Acute Assessment and Plan: Patient presents with abdominal pain. Lipase was 800. LFTs are normal. CT of the abdomen and pelvis showed mild acute pancreatitis at the pancreatic tail region but no other significant abnormalities. RUQ US shows gallbladder sludge no evidence of acute cholecystitis. He does have diffuse hepatic steatosis. Triglycerides 2250 probably related to uncontrolled DM. He denies drinking alcohol. Suspected etiology of pancreatitis related to hypertriglyceridemia. Lipase trending downward. Will add fenofibrate and Lipitor. advance diet from clears to dm diet pt is doing better ok to DC today (2) Uncontrolled type 2 diabetes mellitus with hyperglycemia: Code(s): E11.65 - Type 2 diabetes mellitus with hyperglycemia Status: Acute Assessment and Plan: A1c 11.5. The patient's blood glucose was reviewed on 08/28 Glucose remains poorly controlled Continue AccuCheks covering with sliding scale. Hypoglycemia protocol available as needed. Continue to monitor. Hold glipizide and metformin for now Had Lantus. clinical trial educator and dietitian consult lantus 10units scripted on DC Lantus pen issued on DC (3) Morbid obesity with BMI of 40.0-44.9, adult: Code(s): E66.01 - Morbid (severe) obesity due to excess calories; Z68.41 - Body mass index [BMI] 40.0-44.9, adult Status: Acute Assessment and Plan: This is contributing to his other medical problems. Healthy lifestyle choices were discussed (4) Osteoarthritis, multiple sites: Qualifiers: Osteoarthritis type: unspecified Qualified Code(s): M15.9 - Polyosteoarthritis, unspecified Code(s): M15.9 - Polyosteoarthritis, unspecified Status: Acute Assessment and Plan: Tylenol p.r.n. (5) TABATHA (obstructive sleep apnea): Code(s): G47.33 - Obstructive sleep apnea (adult) (pediatric) Status: Acute Assessment and Plan: Patient states he feels tired all the time. Explain that it most likely is related to his untreated sleep apnea. Offered to start Auto-PAP here for but he declines. (6) Tobacco abuse: Code(s): Z72.0 - Tobacco use Status: Acute Assessment and Plan: Patient was educated about the benefits of smoking cessation DS: Summary Hospital Course Hospital Course: 48yo male with DM, tobacco abuse and anxiety here for abdominal pain. Pt admitted for pancreatis Pt doing better ok to Dc today Pt tolerating a diet pt hbaic is high pt discharged on lantus pen 10 units at night Time Spent with Patient Time attestation: Total time spent providing and/or coordinating discharge services:45 minutes on day of dc Exam Narrative: GEn: younger male tired with headache Chest - CTA bilaterally, nml RR CV - RRR S1/S2 Abd - Soft, obese, iffusely tender Ext - No pedal edema. 2+ PT pulses bilaterally. Neuro - Alert and oriented. Nonfocal exam. Psych - Nml mood and affect Skin - Warm and dry DS: Data Data Completed and Pending Labs on day of discharge: Labs from last 24 hours 08/31/23 08/31/23 08/31/23 11:37 07:43 04:56 Sodium 136 L Potassium 4.0 Chloride 104 Carbon Dioxide 23 Anion Gap 9 BUN 9 Creatinine 0.60 L Estim Creat Clear Calc 165 Estimated GFR > 60 Glucose 214 H POC Capillary Glucose 268 H 217 H Calcium 8.7 Lipase 194 08/30/23 08/30/23 08/30/23 20:05 16:10 15:21 Sodium
== END 2023-08-31 13:45 | disposition home or self-care (01) ==
LOC: ANHED 08-29 03:19 → ANH3MEDSUR 08-29 04:29
PROVIDERS: Emergency Medicine; Internal Medicine; Admitting Provider Internal Medicine; Emergency Provider Physician Assistant; PCP Family Medicine; Visit Provider Family Medicine
DX: K85.90 Acute pancreatitis without necrosis or infection, unspecified (principal); E11.65 Type 2 diabetes mellitus with hyperglycemia; M15.9 Polyosteoarthritis, unspecified; G47.33 Obstructive sleep apnea (adult) (pediatric); E78.5 Hyperlipidemia, unspecified; F41.9 Anxiety disorder, unspecified; F17.290 Nicotine dependence, other tobacco product, uncomplicated; F17.220 Nicotine dependence, chewing tobacco, uncomplicated; E66.01 Morbid (severe) obesity due to excess calories; Z68.41 Body mass index [BMI] 40.0-44.9, adult; Z79.84 Long term (current) use of oral hypoglycemic drugs
CPT/HCPCS: 36415; 71046; 71250; 74176; 76705; 80048; 80053; 80061; 81003; 82948; 83036; 83605; 83690; 84443; 84478; 84484; 85025; 85610; 85730; 93005; 96361; 96374; 96375; 96376; 99285; A9270; G0378; J1170; J1650; J1815; J2270; J2405; J7030

== ENCOUNTER 2024-01-04 23:31 | Inpatient (IN) | payer OTHER, SELFPAY ==
--- NOTE | ~2024-01-04 | US_ITS ---
EXAMINATION: US abdomen limited DATE: 01/05/2024 09:35 INDICATION: Pancreatitis. TECHNIQUE: Multiple grayscale and Doppler ultrasound images of the abdomen were obtained. COMPARISON: CT abdomen and pelvis 01/05/2024 FINDINGS: The visualized portions of the head and body of the pancreas are normal. There is diffuse h epatic steatosis. There is normal flow in main portal vein. The gallbladder is normal in size. No gal lstones or gallbladder wall thickening. There is no sonographic Hoyt's sign. The common duct is nor mal and measures 3 mm. IMPRESSION: 1. Normal visualized portion of the pancreas. Note that ultrasound has poor sensitivity for pancreati tis. 2. Diffuse hepatic steatosis. Reviewed, dictated and finalized at location A. IMPRESSION: 1. Normal visualized portion of the pancreas. Note that ultrasound has poor sen sitivity for pancreatitis. 2. Diffuse hepatic steatosis.
--- NOTE | ~2024-01-04 | CT_ITS ---
Non-contrast CT scan of the Abdomen and Pelvis Clinical indication: Abdominal pain Technique: 2.5 mm axial scans were obtained through the abdomen and pelvis without intravenous or or al contrast. Dose reduction technique was used on this scan by utilizing automated exposure control a nd iterative reconstruction technique. The dose-length product (DLP) was 1795.70 mGy-cm. COMPARISON: 08/28/2023 Findings: Images through the lung bases reveal no abnormalities. There is no evidence of renal or ureteral calculi. The kidneys and the ureters are nondilated. The liver, spleen, gallbladder, and adrenals appear normal. Probable minimal edematous change of the pancreatic body with minimal peripancreatic stranding. There is no aortic aneurysm. There is no evidence of bowel obstruction. Images through the pelvis were performed. There is no evidence of ascites or lymphadenopathy. Urinary bladder unremarkable. No pelvic mass seen. Impression: Findings suggestive of very mild acute pancreatitis. Correlate clinically. Reviewed, dictated and finalized at [facility]. Impression: Findings suggestive of very mild acute pancreatitis. Correlate clinically.
[2024-01-04 23:28] VITALS: BP 150/104; PULSE 84; RESP 16; TEMP 36.6; O2SAT 97
[2024-01-04 23:45] LABS: Basophils Percent Auto 0.4 % (0.2-1.2); Eosinophils Percent Auto 0.6 % (0-4.4); Hematocrit 44.2 % (42.0-52.0); Hemoglobin 16.3 g/dL (14.0-18.0); Immature Granulocyte Absolute 0.04 K/mm3 (0.00-0.031); Immature Granulocyte Percent A 0.6 % (0-0.5); Lymphocytes Absolute Auto 1.57 K/mm3 (0.9-3.2); Lymphocytes Percent Auto 21.7 % (18.3-44.2); Mean Corpuscular HGB Conc 36.9 g/dl (32-36); Mean Corpuscular Hemoglobin 34.2 pg (26-34); Mean Corpuscular Volume 92.7 fl (80-100); Mean Platelet Volume 9.2 fl (7.4-10.4); Monocytes Absolute Auto 0.8 K/mm3 (0.1-0.6); Monocytes Percent Auto 10.5 % (2.6-8.5); Neutrophils Absolute Auto 4.8 K/mm3 (1.3-6.7); Neutrophils Percent Auto 66.2 % (45.5-73.1); Platelet Count Result 242 k/mm3 (150-375); Red Blood Count 4.77 M/mm3 (4.6-6.20); Red Cell Distribution Width 12.7 % (11.5-14.5); White Blood Count 7.3 K/mm3 (4.5-10.0)
[2024-01-04] MEDS: SODIUM CHLORIDE 0.9% IV 1,000 ML 999 ML IV CONT (23:45)
[2024-01-04] MEDS: ONDANSETRON INJ 4 MG/2 ML VIAL IV PUSH (23:45)
[2024-01-04] MEDS: MORPHINE SULFATE (*CRX) 4 MG/ML INJ IV PUSH (23:45)
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
[2024-01-04 23:56] LABS: Alanine Aminotransferase 29 U/L (6-50); Albumin Level 4.2 g/dL (3.5-5.1); Alkaline Phosphatase 112 U/L (38-126); Aspartate Amino Transferase 26 U/L (17-59); Blood Urea Nitrogen 16 mg/dL (9-20); Carbon Dioxide 22 mmol/L (22-30); Chloride 98 mmol/L (98-107); Estimated CRCL calculation 109 ml/min; Estimated Glomerular Filt Rate > 60; Glucose 410 mg/dL (65-110); Lactic Acid Reflex 1.8 mmol/L (0.7-2.0)
[2024-01-04 23:57] LABS: Anion Gap 13 mmol/L (4-12); Bilirubin,Total 0.8 mg/dL (0.2-1.3); Potassium 4.1 mmol/L (3.4-5.0); Sodium 133 mmol/L (137-145)
[2024-01-04 23:58] VITALS: BP 128/68; PULSE 89; RESP 15; O2SAT 92
[2024-01-05] VITALS (7 sets, daily range): BP systolic 130–150; BP diastolic 64–88; PULSE 80–93; RESP 15–19; TEMP 36.4–36.6; O2SAT 88–100; BMI 24.7; BMI 40.9
--- NOTE | 2024-01-05 00:03 | ECG_ITS ---
Test Date: 2024-01-05 00:03:14 Measurements Intervals Doon Rate: 68 P: 64 NV: 163 QRS: 36 QRSD: 86 T: 11 QT: 382 QTc: 407 Interpretive Statements SINUS RHYTHM WITH OCCASIONAL VENTRICULAR PREMATURE COMPLEXES BORDERLINE ST-T WAVE ABNORMALITY- INFERIOR LEADS BASELINE ARTIFACT- I, II, III, AVR, AVL, AVF BORDERLINE ECG No previous ECG available for comparison Electronically Signed On 01-05-2024 07:50:40 CDT by Vitor Baez D.O.
[2024-01-05 00:42] LABS: Lipase 13728 U/L (23-300)
[2024-01-05] MEDS: HYDROmorphone HCL INJ (*CRX) 1 MG/ML SYR 0.5 MG IV PUSH ×5 (01:17→16:59)
[2024-01-05] MEDS: SODIUM CHLORIDE 0.9% IV 1,000 ML 999 ML IV CONT (01:18)
[2024-01-05 01:23] LABS: Ethanol < 10 mg/dL (<10)
[2024-01-05 01:26] LABS: Magnesium 1.9 mg/dL (1.6-2.3)
[2024-01-05 01:34] LABS: Add Urine Microscopic? NO; Appearance Urine Clear (Clear); Bilirubin Urine Negative (Negative); Blood Urine Negative (Negative); Color Urine Yellow (Yellow); Glucose Urine UA 3+ mg/dL (Negative); Ketones Urine 1+ mg/dL (Negative); Leukocyte Esterase Ur Negative LEU/UL (Negative); Nitrate Urine Negative (Negative); Protein Urine Negative (Negative); Specific Grav Ur 1.035 (1.001-1.035); Urobilinogen Urine 0.2 mg/dL (<2.0); pH Urine 5.5 (5.0-9.0)
[2024-01-05 01:46] LABS: Triglycerides 2373 mg/dL (<150)
[2024-01-05 01:51] LABS: Amphetamine Screen Urine Negative (Negative); Barbiturate Screen Urine Negative (Negative); Benzodiazepines Screen Urine Negative (Negative); Cannabinoid Screen Urine Negative (Negative); Cocaine Screen Urine Negative (Negative); Methadone Screen Urine Negative (Negative); Opiate Screen Urine Positive (Negative); Phencyclidine Screen Urine Negative (Negative)
[2024-01-05] MEDS: SODIUM CHLORIDE 0.9% IV 1,000 ML 200 ML IV CONT ×3 (02:33→12:15)
[2024-01-05 02:37] LABS: Glucose Point of Care 368 mg/dl (65-105)
[2024-01-05] MEDS: INSULIN HUMAN REGULAR (*BKC) 100 UNITS/ML 6 UNITS IV PUSH (02:59)
[2024-01-05 03:10] LABS: Hemoglobin A1C 11.4 % (<5.7)
--- NOTE | 2024-01-05 04:03 | ADMGEN ---
This patient, John Granado, was admitted to 2 Medical Room 259-01. Patient/family oriented to hospital policies and general routines including ID bracelet, bed and alarms, visiting hours, pain management, procedures, bathroom and other care routines, personal items, smoking policy, room service/diet, and visiting hours. Information on how to activate the Rapid Response Team has been discussed. Patient/Family are encouraged to report perceived risks to care and to ask questions if they do not understand what they are told or what they should do. PT STATES HE DOES NOT TAKE ANY MEDS ANYMORE OTHER THAN GLIPIZIDE AND METFORMIN. STATES IS SUPPOSED TO TAKE INSULIN BUT DOESNT
--- NOTE | 2024-01-05 04:11 | PC.NURSE ---
This patient, John Granado, was admitted to 2 Medical Room 259-01. Patient/family oriented to hospital policies and general routines including ID bracelet, bed and alarms, visiting hours, pain management, procedures, bathroom and other care routines, personal items, smoking policy, room service/diet, and visiting hours. Information on how to activate the Rapid Response Team has been discussed. Patient/Family are encouraged to report perceived risks to care and to ask questions if they do not understand what they are told or what they should do.
[2024-01-05 04:15] LABS: Glucose Point of Care 340 mg/dl (65-105)
[2024-01-05] MEDS: HEPARIN SODIUM 5,000 UNITS/ML VIAL 5000 UNITS SUB-Q ×3 (06:26→22:58)
[2024-01-05] MEDS: INSULIN HUMAN REGULAR (*BKC) 100 UNITS/ML 6 UNITS SUB-Q ×2 (06:43→12:15)
[2024-01-05 06:47] LABS: Glucose Point of Care 337 mg/dl (65-105)
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
[2024-01-05] MEDS: ENOXAPARIN 40 MG/0.4 ML SYRINGE SUB-Q (08:39)
[2024-01-05 08:48] LABS: Glucose Point of Care 292 mg/dl (65-105)
[2024-01-05 09:31] LABS: Basophils Percent Auto 0.2 % (0.2-1.2); Eosinophils Percent Auto 0.1 % (0-4.4); Hematocrit 45.8 % (42.0-52.0); Immature Granulocyte Absolute 0.03 K/mm3 (0.00-0.031); Immature Granulocyte Percent A 0.4 % (0-0.5); Lymphocytes Absolute Auto 0.57 K/mm3 (0.9-3.2); Lymphocytes Percent Auto 6.8 % (18.3-44.2); Mean Corpuscular HGB Conc 34.9 g/dl (32-36); Mean Corpuscular Hemoglobin 32.8 pg (26-34); Mean Corpuscular Volume 93.9 fl (80-100); Mean Platelet Volume 9.2 fl (7.4-10.4); Monocytes Absolute Auto 0.6 K/mm3 (0.1-0.6); Monocytes Percent Auto 7.5 % (2.6-8.5); Neutrophils Absolute Auto 7.1 K/mm3 (1.3-6.7); Platelet Count Result 220 k/mm3 (150-375); Red Blood Count 4.88 M/mm3 (4.6-6.20); White Blood Count 8.4 K/mm3 (4.5-10.0)
[2024-01-05 09:41] LABS: Lactic Acid Reflex 1.3 mmol/L (0.7-2.0)
[2024-01-05 09:47] LABS: Alanine Aminotransferase 28 U/L (6-50); Albumin Level 4.3 g/dL (3.5-5.1); Alkaline Phosphatase 113 U/L (38-126); Anion Gap 10 mmol/L (4-12); Aspartate Amino Transferase 24 U/L (17-59); Bilirubin,Total 1.2 mg/dL (0.2-1.3); Blood Urea Nitrogen 11 mg/dL (9-20); Calcium 8.8 mg/dL (8.4-10.2); Carbon Dioxide 24 mmol/L (22-30); Chloride 101 mmol/L (98-107); Estimated CRCL calculation 193 ml/min; Estimated Glomerular Filt Rate > 60; Glucose 276 mg/dL (65-110); Lipase 923 U/L (23-300); Potassium 4.2 mmol/L (3.4-5.0); Sodium 135 mmol/L (137-145)
[2024-01-05] MEDS: INSULIN ASPART (*BKC) 100 UNITS/ML SUB-Q ×3 (09:50→22:56)
[2024-01-05 10:12] LABS: Triglycerides 1187 mg/dL (<150)
[2024-01-05 10:22] LABS: Procalcitonin 0.1 ng/mL
[2024-01-05 11:20] LABS: Hemoglobin A1C 11.6 % (<5.7)
[2024-01-05 11:41] LABS: Glucose Point of Care 418 mg/dl (65-105)
[2024-01-05] MEDS: ATORVASTATIN 40 MG TABLET PO (14:06)
[2024-01-05] MEDS: FENOFIBRATE 160 MG TABLET PO (14:06)
[2024-01-05 16:47] LABS: Glucose Point of Care 335 mg/dl (65-105)
[2024-01-05 22:22] LABS: Glucose Point of Care 320 mg/dl (65-105)
[2024-01-05] MEDS: INSULIN GLARGINE (*BKC) 100 UNITS/ML 10 UNITS SUB-Q (22:56)
[2024-01-06] VITALS: BP 128/75; PULSE 100; RESP 18; TEMP 37.4; O2SAT 96
[2024-01-06] MEDS: HYDROmorphone HCL INJ (*CRX) 1 MG/ML SYR 0.5 MG IV PUSH ×5 (05:24→21:42)
[2024-01-06 05:34] LABS: Basophils Percent Auto 0.2 % (0.2-1.2); Eosinophils Percent Auto 0.1 % (0-4.4); Hemoglobin 15.2 g/dL (14.0-18.0); Immature Granulocyte Absolute 0.04 K/mm3 (0.00-0.031); Immature Granulocyte Percent A 0.4 % (0-0.5); Lymphocytes Absolute Auto 0.54 K/mm3 (0.9-3.2); Lymphocytes Percent Auto 5.5 % (18.3-44.2); Mean Corpuscular HGB Conc 33.8 g/dl (32-36); Mean Corpuscular Hemoglobin 32.2 pg (26-34); Mean Corpuscular Volume 95.3 fl (80-100); Mean Platelet Volume 9.6 fl (7.4-10.4); Monocytes Absolute Auto 0.8 K/mm3 (0.1-0.6); Monocytes Percent Auto 8.5 % (2.6-8.5); Neutrophils Absolute Auto 8.3 K/mm3 (1.3-6.7); Neutrophils Percent Auto 85.3 % (45.5-73.1); Platelet Count Result 201 k/mm3 (150-375); Red Blood Count 4.72 M/mm3 (4.6-6.20); White Blood Count 9.8 K/mm3 (4.5-10.0)
[2024-01-06 05:51] LABS: Alanine Aminotransferase 21 U/L (6-50); Albumin Level 3.8 g/dL (3.5-5.1); Alkaline Phosphatase 87 U/L (38-126); Anion Gap 10 mmol/L (4-12); Aspartate Amino Transferase 28 U/L (17-59); Bilirubin,Total 2.4 mg/dL (0.2-1.3); Blood Urea Nitrogen 7 mg/dL (9-20); Calcium 8.5 mg/dL (8.4-10.2); Carbon Dioxide 24 mmol/L (22-30); Chloride 100 mmol/L (98-107); Estimated CRCL calculation 164 ml/min; Estimated Glomerular Filt Rate > 60; Glucose 257 mg/dL (65-110); Lipase 396 U/L (23-300); Potassium 4.4 mmol/L (3.4-5.0); Sodium 134 mmol/L (137-145)
[2024-01-06 06:07] LABS: Triglycerides 799 mg/dL (<150)
[2024-01-06 06:20] VITALS: BP 135/74; PULSE 75; RESP 18; TEMP 37.1; O2SAT 95
--- NOTE | 2024-01-06 07:41 | PM.IMPN ---
Progress Note: A&P Assessment and Plan (1) Acute pancreatitis: Qualifiers: Acute pancreatitis complication: no infection or necrosis Pancreatitis type: unspecified pancreatitis type Qualified Code(s): K85.90 - Acute pancreatitis without necrosis or infection, unspecified Code(s): K85.90 - Acute pancreatitis without necrosis or infection, unspecified Status: Acute Assessment and Plan: Patient presents with abdominal pain. Lipase 13,728 on admission, now 396 on am labs. LFTs WNL. Triglycerides 2373 on admission, now 799 on am labs. Possibly related to patients uncontrolled diabetes. CT abdomen/pelvis: Suggestive of very mild acute pancreatitis. Normal appearing gallbladder. RUQ US: The gallbladder is normal in size. No gallstones or gallbladder wall thickening. Etiology of acute pancreatitis is likely secondary to hypertriglyceridemia Restarted patient on atorvastatin and fenofibrate Full liquid diet Received 2L bolus of fluids in the ED and started on 200 ml/hr. Analgesics PRN (2) Hypertriglyceridemia: Code(s): E78.1 - Pure hyperglyceridemia Status: Acute Assessment and Plan: Triglycerides 2373 on admission. Likely secondary to patients uncontrolled diabetes. - 799 on am labs - Monitor (3) Type 2 diabetes mellitus with hyperglycemia: Qualifiers: Diabetes mellitus superintendent terminal insulin use: without superintendent terminal use Qualified Code(s): E11.65 - Type 2 diabetes mellitus with hyperglycemia Code(s): E11.65 - Type 2 diabetes mellitus with hyperglycemia Status: Acute Assessment and Plan: - hypoglycemia protocol - POC blood glucose ACHS - home medication - metformin 500 mg BID and glipizide 10 mg daily - Last seen by PCP 10/09: Per their records patient is noncompliant with medications. Was to start insulin glargine 10 units nightly. - correct regimen ordered - low dose TIDWM and HS and lantus 15 units HS - A1C 11.4 on 01/03 01/05: Despite being on lantus 10 he remains hyperglycemic into the 250s, will increase his lantus to 15 units . (4) Morbid obesity with BMI of 40.0-44.9, adult: Code(s): E66.01 - Morbid (severe) obesity due to excess calories; Z68.41 - Body mass index [BMI] 40.0-44.9, adult Status: Acute Assessment and Plan: - Recommend healthy life style (5) Tobacco abuse: Code(s): Z72.0 - Tobacco use Status: Acute Assessment and Plan: Encouraged smoking cessation. (6) TABATHA (obstructive sleep apnea): Code(s): G47.33 - Obstructive sleep apnea (adult) (pediatric) Status: Acute Assessment and Plan: Patient states he use to use his CPAP machine, but has not been lately. - CPAP ordered Time Spent With Patient Time with patient: 25 - 35 minutes Subjective Date/time seen: 01/06/24 07:41 Interval history: 48 year old male with past medical history of DM,TABATHA, tobacco abuse and anxiety presents to the hospital for abdominal pain. Patient is pleasant lying in bed. He states that he is tolerating his diet well, denying nausea/ vomiting and increased abdominal pain with meals. Will continue to advance diet as tolerated. He continues to endorse slight abdominal pain but states that this has improved since admission. He notes that the pain regimen is adequate at this time. Patient continues to have hyperglycemia despite starting his prescribed dose of Lantus 10 units. Will increase this to 15 units as the weight based dose is 35 units (0.3/kg). patient denies chest pain, shortness a breath, palpitations. Review of Systems Review of Systems: All systems reviewed & are unremarkable except as noted in HPI and below Exam Narrative: AF HR 75 RR 18 SpO2 95 BP 135/74 General: male in no acute respiratory distress who is nontoxic appearing, lying semi recumbent in bed. HEENT: Normocephalic. Atraumatic. Extraocular movement intact. Sclera clear and anicteric. No facial asymmetry. Chest: Lungs
[2024-01-06 08:24] LABS: Glucose Point of Care 291 mg/dl (65-105)
[2024-01-06] MEDS: ATORVASTATIN 40 MG TABLET PO (09:22)
[2024-01-06] MEDS: FENOFIBRATE 160 MG TABLET PO (09:22)
[2024-01-06] MEDS: INSULIN ASPART (*BKC) 100 UNITS/ML SUB-Q ×4 (09:23→21:43)
[2024-01-06] MEDS: ENOXAPARIN 40 MG/0.4 ML SYRINGE SUB-Q (09:26)
[2024-01-06 09:30] VITALS: BMI 40.1
[2024-01-06 11:59] LABS: Glucose Point of Care 250 mg/dl (65-105)
[2024-01-06] MEDS: SODIUM CHLORIDE 0.9% IV 1,000 ML 200 ML IV CONT (13:00)
[2024-01-06 14:00] VITALS: BP 132/75; PULSE 97; RESP 16; TEMP 36.7; O2SAT 94
[2024-01-06 16:52] LABS: Glucose Point of Care 281 mg/dl (65-105)
[2024-01-06 21:16] LABS: Glucose Point of Care 299 mg/dl (65-105)
[2024-01-06] MEDS: INSULIN GLARGINE (*BKC) 100 UNITS/ML 15 UNITS SUB-Q (21:45)
[2024-01-06 22:00] VITALS: BP 131/64; PULSE 109; RESP 18; TEMP 37.8; O2SAT 97
[2024-01-07] MEDS: HYDROmorphone HCL INJ (*CRX) 1 MG/ML SYR 0.5 MG IV PUSH ×2 (02:04→06:22)
[2024-01-07 05:20] LABS: Basophils Percent Auto 0.1 % (0.2-1.2); Eosinophils Percent Auto 0.4 % (0-4.4); Hematocrit 41.4 % (42.0-52.0); Hemoglobin 14.1 g/dL (14.0-18.0); Immature Granulocyte Absolute 0.04 K/mm3 (0.00-0.031); Immature Granulocyte Percent A 0.5 % (0-0.5); Lymphocytes Absolute Auto 0.57 K/mm3 (0.9-3.2); Lymphocytes Percent Auto 6.7 % (18.3-44.2); Mean Corpuscular HGB Conc 34.1 g/dl (32-36); Mean Corpuscular Hemoglobin 32.6 pg (26-34); Mean Corpuscular Volume 95.8 fl (80-100); Mean Platelet Volume 9.1 fl (7.4-10.4); Monocytes Absolute Auto 0.7 K/mm3 (0.1-0.6); Monocytes Percent Auto 8.5 % (2.6-8.5); Neutrophils Absolute Auto 7.2 K/mm3 (1.3-6.7); Neutrophils Percent Auto 83.8 % (45.5-73.1); Platelet Count Result 177 k/mm3 (150-375); Red Blood Count 4.32 M/mm3 (4.6-6.20); Red Cell Distribution Width 12.9 % (11.5-14.5); White Blood Count 8.6 K/mm3 (4.5-10.0)
[2024-01-07 05:33] LABS: Alanine Aminotransferase 17 U/L (6-50); Albumin Level 3.6 g/dL (3.5-5.1); Alkaline Phosphatase 92 U/L (38-126); Anion Gap 10 mmol/L (4-12); Aspartate Amino Transferase 20 U/L (17-59); Bilirubin,Total 2.4 mg/dL (0.2-1.3); Blood Urea Nitrogen 10 mg/dL (9-20); Calcium 8.7 mg/dL (8.4-10.2); Carbon Dioxide 25 mmol/L (22-30); Chloride 98 mmol/L (98-107); Estimated CRCL calculation 163 ml/min; Estimated Glomerular Filt Rate > 60; Glucose 241 mg/dL (65-110); Lipase 153 U/L (23-300); Potassium 4.1 mmol/L (3.4-5.0); Sodium 133 mmol/L (137-145); Triglycerides 324 mg/dL (<150)
[2024-01-07 06:00] VITALS: BP 137/66; PULSE 87; RESP 18; TEMP 36.4; O2SAT 97
[2024-01-07 08:11] LABS: Glucose Point of Care 242 mg/dl (65-105)
[2024-01-07] MEDS: FENOFIBRATE 160 MG TABLET PO (08:47)
[2024-01-07] MEDS: ATORVASTATIN 40 MG TABLET PO (08:47)
[2024-01-07] MEDS: INSULIN ASPART (*BKC) 100 UNITS/ML SUB-Q ×4 (08:47→21:19)
--- NOTE | 2024-01-07 08:49 | PM.IMPN ---
Progress Note: A&P Assessment and Plan (1) Acute pancreatitis: Qualifiers: Acute pancreatitis complication: no infection or necrosis Pancreatitis type: unspecified pancreatitis type Qualified Code(s): K85.90 - Acute pancreatitis without necrosis or infection, unspecified Code(s): K85.90 - Acute pancreatitis without necrosis or infection, unspecified Status: Acute Assessment and Plan: Patient presents with abdominal pain. Lipase 13,728 on admission, now WNL on am labs. LFTs WNL. Triglycerides 2373 on admission, now 324 on am labs. Possibly related to patients uncontrolled diabetes. CT abdomen/pelvis: Suggestive of very mild acute pancreatitis. Normal appearing gallbladder. RUQ US: The gallbladder is normal in size. No gallstones or gallbladder wall thickening. Etiology of acute pancreatitis is likely secondary to hypertriglyceridemia Restarted patient on atorvastatin and fenofibrate Low fat diabetic diet Received 2L bolus of fluids in the ED and started on 200 ml/hr. Analgesics PRN (2) Hypertriglyceridemia: Code(s): E78.1 - Pure hyperglyceridemia Status: Acute Assessment and Plan: Triglycerides 2373 on admission. Likely secondary to patients uncontrolled diabetes. - 324 on am labs - Monitor (3) Type 2 diabetes mellitus with hyperglycemia: Qualifiers: Diabetes mellitus watermelon inspector insulin use: without detention use Qualified Code(s): E11.65 - Type 2 diabetes mellitus with hyperglycemia Code(s): E11.65 - Type 2 diabetes mellitus with hyperglycemia Status: Acute Assessment and Plan: - hypoglycemia protocol - POC blood glucose ACHS - home medication - metformin 500 mg BID and glipizide 10 mg daily - Last seen by PCP 10/09: Per their records patient is noncompliant with medications. Was to start insulin glargine 10 units nightly. - correct regimen ordered - low dose TIDWM and HS and lantus 15 units HS - A1C 11.4 on 01/03 01/05: Despite being on lantus 10 he remains hyperglycemic into the 250s, will increase his lantus to 15 units . 01/06: Patient remains hyperglycemic. Increased Lantus to 20 units. Continue to monitor. (4) Morbid obesity with BMI of 40.0-44.9, adult: Code(s): E66.01 - Morbid (severe) obesity due to excess calories; Z68.41 - Body mass index [BMI] 40.0-44.9, adult Status: Acute Assessment and Plan: - Recommend healthy life style (5) Tobacco abuse: Code(s): Z72.0 - Tobacco use Status: Acute Assessment and Plan: Encouraged smoking cessation. (6) TABATHA (obstructive sleep apnea): Code(s): G47.33 - Obstructive sleep apnea (adult) (pediatric) Status: Acute Assessment and Plan: Patient states he use to use his CPAP machine, but has not been lately. - CPAP ordered Time Spent With Patient Time with patient: 25 - 35 minutes Subjective Date/time seen: 01/07/24 08:49 Interval history: 48 year old male with past medical history of DM,TABATHA, tobacco abuse and anxiety presents to the hospital for abdominal pain. Patient is pleasantly lying comfortably in bed. He states that his pain has improved and the slight pain he feels is likely from lying in bed all day. Will transition him off of IV pain regimen to orals. He is tolerating his current diet well, denying nausea / vomiting and increased abdominal pain. Will continue to advance. Patient continues to have hyperglycemia on a.m. labs. Will increase his Lantus to 20 units tonight. Again discussed with patient the importance of continuing this medication at time of discharge. He states understanding. Patient denies chest pain, shortness of breath, and changes in bowel/bladder. Review of Systems Review of Systems: All systems reviewed & are unremarkable except as noted in HPI and below Exam Narrative: AF HR 87 RR 18 SpO2 97 BP 137/66 General: male in no acute respiratory distress who is nontoxic appearing, lying semi recumb
[2024-01-07] MEDS: ENOXAPARIN 40 MG/0.4 ML SYRINGE SUB-Q (08:50)
[2024-01-07] MEDS: ACETAMINOPHEN 325 MG TABLET 650 MG PO ×2 (10:02→17:48)
[2024-01-07 12:07] LABS: Glucose Point of Care 217 mg/dl (65-105)
[2024-01-07] MEDS: HYDROcodone/acetaminophen (*CRX) 5-325 MG TABLET 1 TAB PO ×2 (12:45→21:45)
[2024-01-07 14:00] VITALS: BP 132/78; PULSE 87; RESP 22; TEMP 36.6; O2SAT 98
[2024-01-07 17:01] LABS: Glucose Point of Care 280 mg/dl (65-105)
[2024-01-07] MEDS: SODIUM CHLORIDE 0.9% IV 1,000 ML 200 ML IV CONT ×2 (17:28→23:48)
[2024-01-07] MEDS: IBUPROFEN 400 MG TABLET 800 MG PO (18:39)
[2024-01-07 20:00] VITALS: O2SAT 97
[2024-01-07 20:58] LABS: Glucose Point of Care 367 mg/dl (65-105)
[2024-01-07] MEDS: INSULIN GLARGINE (*BKC) 100 UNITS/ML 20 UNITS SUB-Q (21:21)
[2024-01-07 22:00] VITALS: BP 140/81; PULSE 98; RESP 18; TEMP 36.8; O2SAT 97
[2024-01-08 05:11] LABS: Basophils Percent Auto 0.2 % (0.2-1.2); Eosinophils Absolute Auto 0.1 K/mm3 (0-0.3); Hematocrit 39.6 % (42.0-52.0); Immature Granulocyte Absolute 0.05 K/mm3 (0.00-0.031); Lymphocytes Absolute Auto 0.46 K/mm3 (0.9-3.2); Lymphocytes Percent Auto 9.2 % (18.3-44.2); Mean Corpuscular HGB Conc 32.8 g/dl (32-36); Mean Corpuscular Volume 97.5 fl (80-100); Mean Platelet Volume 9.4 fl (7.4-10.4); Monocytes Absolute Auto 0.6 K/mm3 (0.1-0.6); Neutrophils Absolute Auto 3.8 K/mm3 (1.3-6.7); Neutrophils Percent Auto 75.6 % (45.5-73.1); Platelet Count Result 191 k/mm3 (150-375); Red Blood Count 4.06 M/mm3 (4.6-6.20); Red Cell Distribution Width 12.7 % (11.5-14.5)
[2024-01-08 05:30] LABS: Alanine Aminotransferase 14 U/L (6-50); Albumin Level 3.3 g/dL (3.5-5.1); Alkaline Phosphatase 90 U/L (38-126); Anion Gap 5 mmol/L (4-12); Aspartate Amino Transferase 18 U/L (17-59); Bilirubin,Total 1.1 mg/dL (0.2-1.3); Blood Urea Nitrogen 11 mg/dL (9-20); Calcium 8.3 mg/dL (8.4-10.2); Carbon Dioxide 29 mmol/L (22-30); Chloride 99 mmol/L (98-107); Estimated CRCL calculation 191 ml/min; Estimated Glomerular Filt Rate > 60; Glucose 283 mg/dL (65-110); Lipase 158 U/L (23-300); Potassium 3.6 mmol/L (3.4-5.0); Sodium 133 mmol/L (137-145); Triglycerides 307 mg/dL (<150)
[2024-01-08] MEDS: HYDROcodone/acetaminophen (*CRX) 5-325 MG TABLET 1 TAB PO (05:59)
[2024-01-08 06:00] VITALS: BP 151/80; PULSE 90; RESP 18; TEMP 36.9; O2SAT 97
[2024-01-08 08:07] LABS: Glucose Point of Care 236 mg/dl (65-105)
[2024-01-08] MEDS: ATORVASTATIN 40 MG TABLET PO (08:28)
[2024-01-08] MEDS: ENOXAPARIN 40 MG/0.4 ML SYRINGE SUB-Q (08:28)
[2024-01-08] MEDS: FENOFIBRATE 160 MG TABLET PO (08:28)
[2024-01-08] MEDS: INSULIN ASPART (*BKC) 100 UNITS/ML SUB-Q (08:29)
--- NOTE | 2024-01-08 11:33 | PM.DS ---
DS: Admitting Diagnosis Discharge Date 01/08/24 Admitting Diagnosis acute pancreatitis hypertriglyceridemia type 2 diabetes morbid obesity tobacco abuse magdy DS: Discharge Diagnosis Discharge Diagnosis (1) Acute pancreatitis: Qualifiers: Acute pancreatitis complication: no infection or necrosis Pancreatitis type: unspecified pancreatitis type Qualified Code(s): K85.90 - Acute pancreatitis without necrosis or infection, unspecified Code(s): K85.90 - Acute pancreatitis without necrosis or infection, unspecified Status: Acute (2) Hypertriglyceridemia: Code(s): E78.1 - Pure hyperglyceridemia Status: Acute (3) Type 2 diabetes mellitus with hyperglycemia: Qualifiers: Diabetes mellitus adjunct faculty for medical terminology insulin use: without senior care use Qualified Code(s): E11.65 - Type 2 diabetes mellitus with hyperglycemia Code(s): E11.65 - Type 2 diabetes mellitus with hyperglycemia Status: Acute (4) Morbid obesity with BMI of 40.0-44.9, adult: Code(s): E66.01 - Morbid (severe) obesity due to excess calories; Z68.41 - Body mass index [BMI] 40.0-44.9, adult Status: Acute (5) Tobacco abuse: Code(s): Z72.0 - Tobacco use Status: Acute (6) MAGDY (obstructive sleep apnea): Code(s): G47.33 - Obstructive sleep apnea (adult) (pediatric) Status: Acute DS: Summary Hospital Course Reason for hospitalization: acute pancreatitis hypertriglyceridemia type 2 diabetes morbid obesity tobacco abuse magdy Hospital Course: 48 year old male with past medical history of DM,MAGDY, tobacco abuse and anxiety presents to the hospital for abdominal pain. [place] [address] and triglycerides 2373. Patient also had uncontrolled diabetes with blood glucose in the 400s. A CT abdomen/pelvis showed acute pancreatitis with normal appearing gallbladder. He was made NPO and started on IV fluids and analgesics. A RUQ US was obtained to further evaluate the gallbladder and showed gallbladder is normal in size. No gallstones or gallbladder wall thickening. During admission patients lipase returned to normal limits. He was able to advance to a low fat diet and denies nausea/vomiting or abdominal pain. Patients triglycerides down trended during admission as well. He was started on fenofibrate and atorvastatin. Discussed with patient that the hypertriglyceridemia is likely secondary to his uncontrolled diabetes. Per chart review patient was to be started on lantus by his PCP however he was not taking this prior to admission. Started patient on lantus and dose increased to 20 units at time of discharge. His is to continue his metformin and glipizide. Patient was seen by informatics educator while inpatient. Prior to discharge patient denies chest pain, shortness of breath, nausea/vomiting and changes in bowel/bladder. patient discharged home in stable condition. He is to continue all medications as prescribed and follow-up with his primary care provider in 1 week . Status at Discharge Functional status at discharge: independent ambulation Time Spent with Patient Time attestation: Total time spent providing and/or coordinating discharge services: Time spent: Greater than 30 minutes Exam Narrative: AF HR 90 RR 18 SpO2 97 BP 151/80 General: male in no acute respiratory distress who is nontoxic appearing, lying semi recumbent in bed. HEENT: Normocephalic. Atraumatic. Extraocular movement intact. Sclera clear and anicteric. No facial asymmetry. Chest: Lungs are clear to auscultation bilaterally. No wheezes or crackles. CV: Heart was regular rate and rhythm. S1/S2. No murmurs, gallops, or rubs. Abd: Abdomen was soft. Slight epigastric tenderness, improving. Nondistended. Positive bowel sounds. No organomegaly or masses. DS: Data Data Completed and Pending Completed studies during hospitalization: abdomen US abdomen/pelvis CT Labs on day of discharge: Labs from last 24 hours
== END 2024-01-08 13:04 | disposition home or self-care (01) | DRG 637 ==
LOC: ANHED 01-05 02:09 → ANH2MED 01-05 03:32
PROVIDERS: Admitting Provider General Practice; Emergency Provider Physician Assistant; PCP Family Medicine; Visit Provider Student in an Organized Health Care Education/Training Program
DX: E11.65 Type 2 diabetes mellitus with hyperglycemia (principal); K85.90 Acute pancreatitis without necrosis or infection, unspecified; Z68.41 Body mass index [BMI] 40.0-44.9, adult; E66.01 Morbid (severe) obesity due to excess calories; E78.1 Pure hyperglyceridemia; E78.5 Hyperlipidemia, unspecified; F41.9 Anxiety disorder, unspecified; F17.290 Nicotine dependence, other tobacco product, uncomplicated; G47.33 Obstructive sleep apnea (adult) (pediatric); M15.9 Polyosteoarthritis, unspecified; Z79.84 Long term (current) use of oral hypoglycemic drugs; Z91.148 Patient's other noncompliance with medication regimen for other reason; Z91.199 Patient's noncompliance with other medical treatment and regimen due to unspecified reason
CPT/HCPCS: 36415; 74176; 76705; 80053; 80307; 81003; 82948; 83036; 83605; 83690; 83735; 84145; 84478; 85025; 93005; 96361; 96374; 96375; 96376; 99285; A9270; G0378; J1170; J1644; J1650; J1815; J2270; J2405; J7030

== ENCOUNTER 2024-05-18 13:58 | Outpatient (CLI) | payer OTHER, SELFPAY ==
--- OUTSIDE RECORDS SUMMARY | 2024-05-18 14:04 | XMS_ITS | Referral Summary ---
Author Organization [facility] Address [address] [place] [address] Care Team Providers Care Oracle Bpm Consultant Name Role Phone Derick Ellis MD Primary Care Provider [phone] Source Comments [facility],non-owned Affiliates and Associated Physician Practices is amultiple site organization consisting of ambulatory clinics and hospital sitesin [place], [place], [place] and [place]. This disclosure is being madepursuant to the Care Everywhere program and may not contain all information available regarding this patient. Last updated 18[facility] Allergies Active Allergy Reactions Criticality Noted Date Comments Contrast-Iodinated Agents For Ct/Other Anaphylaxis High 09/16/2015 Medications * Be aware that medications may not be up to date on this document. Alwaysverify current medications with the patient. Medication Sig Dispensed Refills Start Date End Date Status glipiZIDE (GLUCOTROL) 5 MG tabletIndications:Typ e 2 Diabetes Mellitus Take 5 mg by mouth daily before breakfast Reasons: Type 2 Diabetes Active traMADol (ULTRAM) 50 MG tablet Take 1 Tab by mouth every 4 hours as needed for Pain 6 Tab 0 09/16/2015 Active ondansetron (ZOFRAN) 4 MG tablet Take 1 Tab by mouth every 4 hours as needed for Nausea/Vomiting 10 Tab 0 09/16/2015 Active atorvastatin (LIPITOR) 20 MG tablet Take 20 mg by mouth once daily 09/27/2019 Active Blood Glucose Monitoring Suppl (ONE TOUCH ULTRA 2) w/Device KIT as directed 09/27/2019 Active glipiZIDE (GLUCOTROL) 5 MG tablet Take 5 mg by mouth once daily 08/20/2019 Active HYDROcodone-acetamino phen (NORCO) 5-325 MG tablet Take 1 tablet by mouth every 8 hours as needed For pain. 09/27/2019 Active ONETOUCH DELICA PLUS 30G EXTRA FINE LANCETS USE TWICE DAILY BEFORE MEALS 10/01/2019 Active metFORMIN ER 24hr (GLUCOPHAGE XR) 500 MG tablet TAKE 1 TABLET BY MOUTH EVERY DAY INCREASE DOSE BY 500MG WEEKLY TO 1000MG TWICE A DAY 09/27/2019 Active pioglitazone (ACTOS) 45 MG tablet Take 45 mg by mouth once daily 10/04/2019 Active JANUVIA 100 MG tablet Take 100 mg by mouth once daily 10/05/2019 Active Active Problems Problem Noted Date Diagnosed Date Osteoarthritis of bilateral glenohumeral joints 10/12/2019 Social History Tobacco Use Types Packs/Day Years Used Date Smoking Tobacco: Every Day Cigarettes Smokeless Tobacco: Former Alcohol Use Standard Drinks/Week Comments Yes 0 (1 standard drink = 0.6 oz pur e alcohol) only on weekends Sex and Gender Information Value Date Recorded Sex Assigned at Not on file Gender Identity Not on file Sexual Orientation Not on file Last Filed Vital Signs Vital Sign Reading Time Taken Comments Blood Pressure 134/89 09/16/2015 11:34 PM CDT Pulse 78 09/16/2015 11:33 PM CDT Temperature 36.9 ??C (98.4 ??F) 09/16/2015 10:06 PM C DT Respiratory Rate 20 09/16/2015 11:33 PM CDT Oxygen Saturation 96% 09/16/2015 11:33 PM CDT Inhaled Oxygen Concentration - - Weight 120.2 kg (265 lb) 09/16/2015 10:06 PM CDT Height 172.7 cm (5' 8 ) 09/16/2015 10:06 PM CDT Body Mass Index 40.29 09/16/2015 10:06 PM CDT Plan of Treatment Not on file Care Teams Oracle Bpm Consultant Relationship Specialty Start Date End Date Derick Ellis MD [address] [place] [address] PCP - General 10/02/19
--- OUTSIDE RECORDS SUMMARY | 2024-05-18 14:04 | XMS_ITS | Clinical Summary ---
Author Organization [facility] Address [address] [place] [address] Care Team Providers Care In File Operator Name Role Phone Derick Ellis MD Primary Care Provider [phone] Source Comments [facility],non-owned Affiliates and Associated Physician Practices is amultiple site organization consisting of ambulatory clinics and hospital sitesin [place], [place] and [place]. This disclosure is being madepursuant to the Care Everywhere program and may not contain all information available regarding this patient. Last updated 18.[employer] Allergies Active Allergy Reactions Criticality Noted Date [...] 09/16/2015 10:06 PM CDT Plan of Treatment Health Maintenance Due Date Last Done Comments COLOGUARD (AGES 45-75) - COL ON CA SCREENING 1976 COLON MONITORING 1976 COLONOSCOPY - COLON CA SCREENING 1976 CT COLONOGRAPHY - COLON CA SCREENING 1976 Colorectal Cancer Screening 1976 FIT - COLON CA SCREENING 1976 FLEX SIG - COLON CA SCREENING 1976 MEDICARE AWV ? 12 MONTHS 1976 HIV SCREENING 1991 HEPATITIS C SCREENING 05/08/1994 DTAP/TDAP/TD VACCINES (1 - Tdap) 1995 HEPATITIS B VACCINE (1 of 3 - 19+ 3-dose series) 1995 PNEUMOCOCCAL VACCINE (1 of 2 - PCV) 1995 COVID-19 VACCINE (1 - 2023-2 5 season) 2023 INFLUENZA VACCINE (#1) 2023 DEPRESSION SCREENING 04/18/2024 ZOSTER VACCINE (1 of 2) 2026 HIB VACCINE Aged Out No longer eligi ble based on patient's age to complete this topic HPV VACCINE Aged Out No longer eligi ble based on patient's age to complete this topic MENINGOCOCCAL (Group B) VACCINE Aged Out No longer eligible based on patient's age to complete this topic MENINGOCOCCAL VACCINE Aged Out No mathieu lana eligible based on patient's age to complete this topic Care Teams In File Operator Relationship Specialty Start Date End Date Derick Ellis MD [address] [place] [id number] PCP - General 10/02/19
--- OUTSIDE RECORDS SUMMARY | 2024-05-18 14:04 | XMS_ITS | Patient Health Summary ---
Author Organization [facility] Address [address] [facility] [place] [address] Care Team Providers Care Research Worker Encyclopedia Name Role Phone Derick Ellis MD Primary Care Provider [phone] Note from [facility],non-owned Affiliates and Associated Physician Practices is amultiple site organization consisting of ambulatory clinics and hospital sitesin [place], [place], [place] and [place]. This disclosure is being madepursuant to the Care Everywhere program and may not contain all information available regarding this patient. Last updated 18.[facility] Allergies * Contrast-Iodinated Agents For Ct/Other(Anaphylaxis) -High Criticality Medications * Be aware that medications may not be up to date on this document. Alwaysverify current medications with the patient. * glipiZIDE (GLUCOTROL) 5 MG tablet Take 5 mg by mouth daily before breakfast Reasons: Type 2 Diabetes * traMADol (ULTRAM) 50 MG tablet(Started 09/16/2015) Take 1 Tab by mouth every 4 hours as needed for Pain * ondansetron (ZOFRAN) 4 MG tablet(Started 09/16/2015) Take 1 Tab by mouth every 4 hours as needed for Nausea/Vomiting * atorvastatin (LIPITOR) 20 MG tablet(Started 09/27/2019) Take 20 mg by mouth once daily * Blood Glucose Monitoring Suppl (ONE TOUCH ULTRA 2) w/Device KIT(Started 09/27/2019) as directed * glipiZIDE (GLUCOTROL) 5 MG tablet(Started 08/20/2019) Take 5 mg by mouth once daily * HYDROcodone-acetaminophen (NORCO) 5-325 MG tablet(Started 09/27/2019) Take 1 tablet by mouth every 8 hours as needed For pain. * ONETOUCH DELICA PLUS 30G EXTRA FINE LANCETS(Started 10/01/2019) USE TWICE DAILY BEFORE MEALS * metFORMIN ER 24hr (GLUCOPHAGE XR) 500 MG tablet(Started 09/27/2019) TAKE 1 TABLET BY MOUTH EVERY DAY INCREASE DOSE BY 500MG WEEKLY TO 1000MG TWICE A DAY * pioglitazone (ACTOS) 45 MG tablet(Started 10/04/2019) Take 45 mg by mouth once daily * JANUVIA 100 MG tablet(Started 10/05/2019) Take 100 mg by mouth once daily Active Problems Problem Noted Date Diagnosed Date [...] Mass Index 40.29 09/16/2015 10:06 PM CDT Procedures * XR SHOULDER LEFT 2VW OR MORE(Performed 10/12/2019) Performed for Left shoulder pain, unspecified chronicity * XR SHOULDER RIGHT 2VW OR MORE(Performed 10/12/2019) Performed for Right shoulder pain, unspecified chronicity * CT ABDOMEN PELVIS WO CONTRAST(Performed 09/16/2015) Performed for Abdominal pain, generalized * LIPASE BLOOD(Performed 09/16/2015) * AMYLASE BLOOD(Performed 09/16/2015) * COMPREHENSIVE METABOLIC PANEL(Performed 09/16/2015) * CBC W AUTO DIFFERENTIAL(Performed 09/16/2015) * DRUG ABUSE URINE SCREEN 10(Performed 09/16/2015) * URINALYSIS REFLEX MICROSCOPIC REFLEX CULTURE(Performed 09/16/2015) Results * XR SHOULDER LEFT 2VW OR MORE (10/12/2019 12:43 PM CDT) Anatomical Region Laterality Modality Upper Extremity Radiographic Carmen ging 10/12/2019 12:5 6 PM CDT Impressions 10/12/2019 1:18 PM CDT Impression: Right shoulder: Moderate glenohumeral osteoarthritis. Left shoulder: Moderate glenohumeral osteoarthritis. Slightly wide AC joint. Report drafted by Patel Orellana M.D. (resident) I, Dr. SHIRLEY SANDHU M.D. have personally reviewed and interpreted this examination/study. This report was electronically signed by SHIRLEY SANDHU M.D. ??on 10/12/2019 1:18 PM . Narrative 10/12/2019 1:18 PM CDT Exam: Right shoulder Radiographs, 3 Views Left shoulder Radiographs, 3 Views History: ??M25.511: Right shoulder pain, unspecified chronicity Comparison: None. Findings: Right shoulder: No fracture or dislocation is present. There is moderate right glenohumeral joint space narrowing and osteophyte formation. The acromioclavicular joint is preserved. The soft tissues are normal. Left shoulder: No fracture or dislocation is present. There is moderate left glenohumeral joint space narrowing and osteophyte formation. The acromioclavicular joint is slightly widened at 8 mm (the right AC joint measures 6 mm). The soft tissues are normal. Procedure Note Shirley Sandhu MD - 10/12/2019 Exam: Right shoulder Radiographs, 3 Views Left shoulder Radiographs, 3 Views History: M25.511: Right shoulder pain, unspecified chronicity Comparison: None. Findings: Right shoulder: No fracture or dislocation is present. There is moderate right glenohumeral joint space narrowing and osteophyte formation. The acromioclavicular joint is preserved. The soft tissues are normal. Left shoulder: No fracture or dislocation is present. There is moderate leftglenohumeral joint space narrowing and osteophyte formation. The acromioclavicular joint is slightly widened at 8 mm (the right AC joint measures 6 mm).The soft tissues are normal. Impression: Right shoulder: Moderate glenohumeral osteoarthritis. Left shoulder: Moderate glenohumeral osteoarthritis. Slightly wide AC joint. Report drafted by Patel Orellana M.D. (resident) Dr. SHIRLEY Mosqueda M.D. have personally reviewed and interpreted this examination/study. This report was electronically signed by SHIRLEY SANDHU M.D. on 10/12/2019 1:18 PM . Emily Glass PA-C DIAGNOSTIC IMAGING O RDERABLES * XR SHOULDER RIGHT 2VW OR MORE (10/12/2019 12:43 PM CDT) Anatomical Region Laterality Modality Upper Extremity Radiographic Carmen ging 10/12/2019 12:5 6 PM CDT Impressions 10/12/2019 1:18 PM CDT Impression: Right shoulder: Moderate glenohumeral osteoarthritis. Left shoulder: Moderate glenohumeral osteoarthritis. Slightly wide AC joint. Report drafted by Patel Orellana M.D. (resident) Dr. SHIRLEY Mosqueda M.D. have personally reviewed and interpreted this examination/study. This report was electronically signed by SHIRLEY SANDHU M.D. ??on 10/12/2019 1:18 PM . Narrative 10/12/2019 1:18 PM CDT Exam: Right shoulder Radiographs, 3 Views Left shoulder Radiographs, 3 Views History: ??M25.511: Right shoulder pain, unspecified chronicity Comparison: None. Findings: Right shoulder: No fracture or dislocation is present. There is moderate right glenohumeral joint space narrowing and osteophyte formation. The acromioclavicular joint is preserved. The soft tissues are normal. Left shoulder: No fracture or dislocation is present. There is moderate left glenohumeral joint space narrowing and osteophyte formation. The acromioclavicular joint is slightly widened at 8 mm (the right AC joint measures 6 mm). The soft tissues are normal. Procedure Note Shirley Sandhu MD - 10/12/2019 Exam: Right shoulder Radiographs, 3 Views Left shoulder Radiographs, 3 Views History: M25.511: Right shoulder pain, unspecified chronicity Comparison: None. Findings: Right shoulder: No fracture or dislocation is present. There is moderate right glenohumeral joint space narrowing and osteophyte formation. The acromioclavicular joint is preserved. The soft tissues are normal. Left shoulder: No fracture or dislocation is present. There is moderate leftglenohumeral joint space narrowing and osteophyte formation. The acromioclavicular joint is slightly widened at 8 mm (the right AC joint measures 6 mm).The soft tissues are normal. Impression: Right shoulder: Moderate glenohumeral osteoarthritis. Left shoulder: Moderate glenohumeral osteoarthritis. Slightly wide AC joint. Report drafted by Patel Orellana M.D. (resident) I, Dr. SHIRLEY SANDHU M.D. have personally reviewed and interpreted this examination/study. This report was electronically signed by SHIRLEY SANDHU M.D. on 10/12/2019 1:18 PM . Emily Glass PA-C DIAGNOSTIC IMAGING O RDERABLES * CT ABDOMEN AND PELVIS WO IV CONTRAST [id number] (09/16/2015 10:47 PM CDT) Anatomical Region Laterality Modality Abdomen, Pelvis Computed Tomogra phy 09/17/2015 11:4 2 AM CDT Impressions 09/17/2015 3:42 PM CDT Lung bases are clear. Limited CT without intravenous or enteric contrast. Hepatomegaly. Hepatic fatty infiltration. Normal appendix. Moderate amount of fecal material present within the colon. The sigmoid colon is redundant. No bowel obstruction, free air, free fluid or lymphadenopathy. Lung bases are clear. Degenerative changes present within the spine. Periumbilical fat-containing hernia. Concur with preliminary report rendered by Heather Portillo M.D. Per report, findings discussed with Dr. Rae at 12:15 a.m. ET 09/17/2015. Narrative 09/17/2015 3:[address] ABDOMEN AND PELVIS WITHOUT CONTRAST 09/16/2015 INDICATION: Abdominal pain. COMPARISON: No comparison Radiation dose reduction technique was utilized. Procedure Note Dennis Miner MD - 09/17/2015 CT ABDOMEN AND PELVIS WITHOUT CONTRAST 09/16/2015 INDICATION: Abdominal pain. COMPARISON: No comparison Radiation dose reduction technique was utilized. IMPRESSION Lung bases are clear. Limited CT without intravenous or enteric contrast. Hepatomegaly. Hepatic fatty infiltration. Normal appendix. Moderate amount of fecal material present within the colon. The sigmoid colon is redundant. No bowel obstruction, free air, free fluid or lymphadenopathy. Lung bases are clear. Degenerative changes present within the spine. Periumbilical fat-containing hernia. Concur with preliminary report rendered by Heather Portillo M.D. Per report, findings discussed with Dr. Rae at 12:15 a.m. ET 09/17/2015. Reginald Rae MD CT ORDERABLES * (ABNORMAL) CBC W AUTO DIFFERENTIAL (09/16/2015 10:30 PM CDT) WBC 11.3(H) 4.0 - 10.0 x10E9/L 09/16/2015 10:44 PM CDT [facility] RBC 4.66 4.40 - 6.10 x10E12/L 09/16/2015 10:44 PM CDT [facility] Hemoglobin 15.5 13.7 - 17.5 gm/dL 09/16/2015 10:44 PM CDT [facility] Hematocrit 45.7 40.1 - 51.0 % 09/16/2015 10:44 PM CDT [facility] MCV 98.1 78.0 - 100.0 fl 09/16/2015 10:44 PM CDT [facility] MCH 33.3 25.6 - 34.0 pg 09/16/2015 10:44 PM CDT [facility] MCHC 33.9 32.3 - 36.5 gm/dL 09/16/2015 10:44 PM CDT [facility] RDW 13.8 11.6 - 14.4 % 09/16/2015 10:44 PM CDT [facility] MPV 9.6 9.4 - 12.4 fl 09/16/2015 10:44 PM CDT [facility] Platelet Count 219 163 - 369 x10E9/L 09/16/2015 10:44 PM CDT [facility] Neutrophils % 59.6 40.0 - 75.0 % 09/16/2015 10:44 PM CDT [facility] Lymphocytes % 31.3 19.3 - 53.1 % 09/16/2015 10:44 PM CDT [facility] Monocytes % 7.7 4.7 - 12.5 % 09/16/2015 10:44 PM CDT [facility] Eosinophils % 0.7 0.7 - 7.0 % 09/16/2015 10:44 PM CDT [facility] Basophils % 0.3 0.1 - 1.2 % 09/16/2015 10:44 PM CDT [facility] Immature Granulocytes 0.4 0 - 0.5 % 09/16/2015 10:44 PM CDT [facility] Neutrophil Absolute 6.71(H) 1.56 - 6.13 x10E9/L 09/16/2015 10:44 PM CDT [facility] Lymphocytes Absolute 3.52 1.18 - 3.74 x10E9/L 09/16/2015 10:44 PM CDT [facility] Monocytes Absolute 0.87(H) 0.24 - 0.86 x10E9/L 09/16/2015 10:44 PM CDT [facility] Eosinophils Absolute 0.08 0.04 - 0.54 x10E9/L 09/16/2015 10:44 PM CDT [facility] Basophils Absolute 0.03 0.01 - 0.08 x10E9/L 09/16/2015 10:44 PM CDT [facility] Immature Granulocytes Absolute 0.05(H) 0 - 0.03 x10E9/L 09/16/2015 10:44 PM CDT [facility] nRBC Auto 0 <=0 /100 WBC 09/16/2015 10:44 PM CDT [facility] nRBC Absolute 0.00 <=0 x10E9/L 09/16/2015 10:44 PM CDT [facility] Blood BLOOD SPECIMEN / Unknown Venipuncture / Unknown 09/16/2015 10:30 PM CDT 09/16/2015 10:40 PM CDT Reginald Rae MD LAB - HEMATOLOGY ORD ERABLES [facility] [address] [place] [address], [facility] * (ABNORMAL) COMPREHENSIVE METABOLIC PANEL (09/16/2015 10:30 PM CDT) [facility] Signature Glucose 217(H) 70 - 125 mg/dL 09/16/2015 11:09 PM CDT [facility] Sodium 140 136 - 145 mmol/L 09/16/2015 11:09 PM CDT [facility] Potassium 4.4 3.4 - 4.5 mmol/L 09/16/2015 11:09 PM CDT [facility] Chloride 106 98 - 107 mmol/L 09/16/2015 11:09 PM CDT [facility] CO2 24 22 - 29 mmol/L 09/16/2015 11:09 PM CDT [facility] Calcium 9.49 8.4 - 10.2 mg/dL 09/16/2015 11:09 PM CDT [facility] Anion Gap 14 10 - 20 mmol/L 09/16/2015 11:09 PM CDT [facility] BUN 15.9 8.4 - 25.7 mg/dL 09/16/2015 11:09 PM T [facility] Creatinine 0.87 0.72 - 1.25 mg/dL 09/16/2015 11:09 PM CDT [facility] eGFR by MDRD >60 >60 mL/min/1.7 3m2 09/16/2015 11:09 PM CDT [facility] eGFR by MDRD >60 >60 mL/min/1.7 3m2 09/16/2015 11:09 PM CDT [facility] Alkaline Phosphatase 103 40 - 150 U/L 09/16/2015 11:09 PM CDT [facility] ALT 18 5 - 55 U/L 09/16/2015 11:09 PM CDT [facility] AST 14 5 - 34 U/L 09/16/2015 11:09 PM CDT [facility] Protein Total 7.2 6.4 - 8.3 gm/dL 09/16/2015 11:09 PM CDT [facility] Albumin 3.7 3.5 - 5.0 gm/dL 09/16/2015 11:09 PM CDT [facility] Globulin Total 3.5 2.6 - 4.0 gm/dL 09/16/2015 11:09 PM CDT [facility] Albumin/Globulin Ratio 1.1 0.9 - 1.6 09/16/2015 11:09 PM CDT [facility] Bilirubin Total 0.6 0.2 - 1.2 mg/dL 09/16/2015 11:09 PM CDT [facility] Blood BLOOD SPECIMEN / Unknown Venipuncture / Unknown 09/16/2015 10:30 PM CDT 09/16/2015 10:40 PM CDT Reginald Rae MD LAB - CHEMISTRY [facility]WAL[facility]TEGA Performing Organization Address City/[facility]/ZIP Co de Phone Number [facility] [address] * LIPASE BLOOD (09/16/2015 10:30 PM CDT) Lipase 63 8 - 78 U/L 09/16/2015 11:09 PM CDT [facility] Blood BLOOD SPECIMEN / Unknown Venipuncture / Unknown 09/16/2015 10:30 PM CDT 09/16/2015 10:40 PM CDT Reginald Rae MD LAB - CHEMISTRY OSWALDO ORTEGA Performing Organization Address [facility] Co de Phone Number [facility] [address] * AMYLASE BLOOD (09/16/2015 10:30 PM CDT) Amylase 42 25 - 125 U/L 09/16/2015 11:09 PM CDT [facility] Blood BLOOD SPECIMEN / Unknown Venipuncture / Unknown 09/16/2015 10:30 PM CDT 09/16/2015 10:40 PM CDT Reginald Rae MD LAB - CHEMISTRY OSWALDO ORTEGA Performing Organization Address City/[facility]/ZIP Co de Phone Number [facility] [address] * DRUG ABUSE URINE SCREEN 10 (09/16/2015 10:22 PM CDT) Amphetamines Screen Urine Negative Negative 09/16/2015 10:42 PM CDT [facility] Barbiturates Screen Urine Negative Negative 09/16/2015 10:42 PM CDT [facility] Benzodiazepines Screen Urine Negative Negative 09/16/2015 10:42 PM CDT [facility] Cannabinoids Screen Urine Negative Negative 09/16/2015 10:42 PM CDT [facility] Cocaine Screen Urine Negative Negative 09/16/2015 10:42 PM CDT [facility] Methadone Screen Urine Negative Negative 09/16/2015 10:42 PM CDT [facility] Opiate Screen Urine Negative Negative 09/16/2015 10:42 PM CDT [facility] Phencyclidine Screen Urine Negative Negative 09/16/2015 10:42 PM CDT [facility] Tricyclics Screen Urine Negative Negative 09/16/2015 10:42 PM CDT [facility] Methamphetamine Screen Urine Negative Negative 09/16/2015 10:42 PM CDT [facility] Urine URINE / Unknown Collection / Unknown 09/16/2015 10:22 PM CDT 09/16/2015 10:26 PM CDT Narrative [facility] - 09/16/2015 10:42 PM CDT This is a presumptive/unconfirmed test for medical treatment purposes only. Clinical consideration and professional judgment should be applied when using presumptive results. If confirmatory testing, such as gas chromatography-mass spectrometry (GC/MS), of any positive results of this test is required, please notify the laboratory within 7 days of collection. This test is intended only for monitoring or management of patients. It is not intended for use in job-related and/or legal-related purposes. The cutoff value for each analyte is: Barbiturates.....200 ng/mL ?? Benzodiazepines......150 ng/mL Cocaine..........150 ng/mL ?? Opiates..............100 ng/mL Phencyclidine.....25 ng/mL ?? Tricyclics...........300 ng/mL Cannabinoid.......50 ng/mL ?? Amphetamines.........500 ng/mL Methadone........200 ng/mL ?? Methamphetamines.....500 ng/mL Reginald Rae MD LAB - URINE CHEMISTR Y ORDERABLES [facility] [address] [place], [place] [id number] [place] [address] * (ABNORMAL) URINALYSIS ROUTINE W/REFLEX TO CULTURE (09/16/2015 10:20 PM CDT) Color UA Yellow 09/16/2015 10:43 PM CDT [facility] Clarity UA Clear 09/16/2015 10:43 PM CDT [facility] Glucose UA Negative Negative 09/16/2015 10:43 PM CDT [facility] Bilirubin UA 1+(A) Negative 09/16/2015 10:43 PM CDT [facility] Ketone UA Trace(A) Negative 09/16/2015 10:43 PM CDT [facility] Specific [place] UA >=1.030 1.005 - 1.030 09/16/2015 10:43 PM CDT [facility] pH UA 5.5 5.0 - 8.0 pH 09/16/2015 10:43 PM CDT [facility] Protein UA Negative Negative 09/16/2015 10:43 PM CDT [facility] Urobilinogen UA 0.2 0.2 - 1.0 EU/dL 09/16/2015 10:43 PM CDT [facility] Nitrite UA Negative Negative 09/16/2015 10:43 PM CDT [facility] Blood UA Negative Negative 09/16/2015 10:43 PM CDT [facility] Leukocyte UA Negative Negative 09/16/2015 10:43 PM CDT [facility] Ictotest Negative Negative 09/16/2015 10:43 PM CDT [facility] Urine Microscopy Urine microscopy not indicated 09/16/2015 10:43 PM CDT [facility] Reflex Status Culture not indicated 09/16/2015 10:43 PM CDT [facility] Urine URINE SPECIMEN OBTAINED BY CLEAN CATCH PROCEDURE / Unknown Collection / Unknown 09/16/2015 10:20 PM CDT 09/16/2015 10:26 PM CDT Reginald Rae MD LAB - URINALYSIS ORD ERABLES Performing Organization Address [facility]/ZIP Co de Phone Number [facility] [address] [place], [place] [address] Care Teams Research Worker Encyclopedia Relationship Specialty Start Date End Date Derick Ellis MD [address] [place] [address] [facility] - General 10/02/19
--- OUTSIDE RECORDS SUMMARY | 2024-05-18 14:04 | XMS_ITS | Clinical Summary ---
Author Organization [facility] Address [address] [place] [address]. [place] [address] [place] [address] Care Team Providers Care Hose Stripper Name Role Phone Dawson Hartman MD Primary Care Provider [phone] Allergies Active Allergy Reactions Criticality Noted Date Comments Iodinated Contrast Media Anaphylaxis High 09/16/2015 Medications atorvastatin 20 MG tablet Take 1 tablet by mouth daily. 12/08/2017 Active glipiZIDE 5 MG tablet Take 5 mg by mouth daily. Active JANUVIA 100 MG tablet Take 1 tablet by mouth daily. 12/08/2017 Active Active Problems Problem Noted Date Diagnosed Date Spondylosis of cervical spine 04/24/2020 Spondylosis of lumbar spine 04/24/2020 Family History * Patient is adopted Medical History Relation Comments unknown Father unknown Mother Relation Status Comments Father Mother Social History Tobacco Use Types Packs/Day Years Used Date Smoking Tobacco: Some Days Cigarettes Smokeless Tobacco: Current Chew Alcohol Use Standard Drinks/Week Comments Yes 0 (1 standard drink = 0.6 oz pur e alcohol) OCCASIONAL Sex and Gender Information Value Date Recorded Sex Assigned at Not on file Legal Sex Male 1:58 AM CDT Gender Identity Not on file Sexual Orientation Not on file Last Filed Vital Signs Vital Sign Reading Time Taken Comments Blood Pressure 141/90 01/06/2018 7:05 PM CDT Pulse 70 01/06/2018 7:05 PM CDT Temperature 36.6 ??C (97.8 ??F) 01/06/2018 7:05 PM CD T Respiratory Rate 16 01/06/2018 7:05 PM CDT Oxygen Saturation 98% 01/06/2018 7:05 PM CDT Inhaled Oxygen Concentration - - Weight 113.4 kg (250 lb) 01/06/2018 7:05 PM CDT Height 172.7 cm (5' 8 ) 01/06/2018 7:05 PM CDT Body Mass Index 38.01 01/06/2018 7:05 PM CDT Plan of Treatment Health Maintenance Due Date Last Done Comments Colorectal Cancer Screening Colonoscopy (10 Years) 1976 Annual Physical 1979 Pneumococcal Vaccine: Pediatrics (0 to 5 Years) and At-Risk Patients (6 to 64 Years) (1 of 2 - PCV) 1982 DTaP, Tdap and Td Vaccines ( 2 - Tdap) 09/21/1990 09/20/1990 Hepatitis C 1994 Hepatitis B Vaccines (3 of 3 - 19+ 3-dose series) 09/29/2010 08/04/2010, 08/04/2009 COVID-19 Vaccine (2023-2 5 season) 2023 Influenza Adult (#1) 2024 02/07/2020, 02/23/2018, 04/15/2017 Meningococcal B Vaccine Aged Out No l onger eligible based on patient's age to complete this topic Meningococcal Vaccine Aged Out No mathieu lana eligible based on patient's age to complete this topic RSV Immunizations Under 20 Months Aged Out No longer eligible b ased on patient's age to complete this topic Insurance MEDICA[place] [address] [address] MEDICARE Care Teams Hose Stripper Relationship Specialty Start Date End Date Dawson Hartman MD [address] [address] PCP - General FAMILY PRACTICE 10/16/16
[2024-05-18 14:45] LABS: Influenza A QL RT-PCR Negative (Negative); Influenza B QL RT-PCR Negative (Negative); RSV RNA, RT-PCR Negative (Negative); SARS-CoV-2 RNA PCR Negative (Negative)
== END 2024-05-18 13:59 | disposition home or self-care (01) ==
LOC: ANHLAB 13:59
PROVIDERS: PCP Family Medicine; Visit Provider Family Medicine
DX: J06.9 Acute upper respiratory infection, unspecified (principal); Z20.822 Contact with and (suspected) exposure to COVID-19
CPT/HCPCS: 87637

== ENCOUNTER 2024-07-07 15:35 | Emergency (ER) | payer MEDICARE, MEDICAID, SELFPAY ==
--- NOTE | ~2024-07-07 | XR_ITS ---
XR chest 2V DATE: 07/07/2024 16:34 INDICATION: Cough TECHNIQUE: PA and lateral views COMPARISON: 08/28/2023 PA and lateral chest FINDINGS: Normal heart size. No hilar or mediastinal enlargement. No pulmonary infiltrate or consolid ation, pleural effusion or pulmonary vascular congestion or pneumothorax. Minimal dextroscoliosis and mild degenerative change of the thoracic spine. IMPRESSION: No active cardiopulmonary disease Reviewed, dictated and finalized at location A.
--- OUTSIDE RECORDS SUMMARY | 2024-07-07 15:37 | XMS_ITS | Clinical Summary ---
Author Organization [facility] Address [address] [facility] [place] [address] Care Team Providers Care Production Metal Sprayer Name Role Phone Derick Ellis MD Primary Care Provider [phone] Source Comments [facility],non-owned Affiliates and Associated Physician Practices is amultiple site organization consisting of ambulatory clinics and hospital sitesin [place], [place], [place] and [place]. This disclosure is being madepursuant to the Care Everywhere program and may not contain all information available regarding this patient. Last updated 18.[employer] [facility] Allergies Active Allergy Reactions Criticality Noted Date [...] 78 09/16/2015 11:33 PM CDT Temperature 36.9 C (98.4 F) 09/16/2015 10:06 PM CDT Respiratory Rate 20 09/16/2015 11:33 PM CDT [...] - COLON CA SCREENING 1976 MEDICARE AWV 12 MONTHS 1976 HIV SCREENING 1991 HEPATITIS C SCREENING 05/08/1994 DTAP/TDAP/TD VACCINES (1 - Tdap) 1995 HEPATITIS B VACCINE (1 of 3 - 19+ 3-dose series) 1995 COVID-19 VACCINE (2023-2 5 season) 2023 INFLUENZA VACCINE (#1) 2023 DEPRESSION SCREENING 04/18/2024 ZOSTER VACCINE (1 of 2) 2026 HIB VACCINE Aged Out No longer eligi ble based on patient's age to complete this topic HPV VACCINE Aged Out No longer eligi ble based on patient's age to complete this topic MENINGOCOCCAL (Group B) VACC INE SHARED DECISION-MAKING Aged Out No longer eligibl e based on patient's age to complete this topic MENINGOCOCCAL GROUPS A/C/Y/W VACCINE Aged Out No longer eligible b ased on patient's age to complete this topic PNEUMOCOCCAL VACCINE Aged Out No long er eligible based on patient's age to complete this topic Care Teams Production Metal Sprayer Relationship Specialty Start Date End Date Derick Ellis MD [address] [facility] [address] [place] [address] PCP - General 10/02/19
--- OUTSIDE RECORDS SUMMARY | 2024-07-07 15:37 | XMS_ITS | Clinical Summary ---
Author Organization [facility] Address [address] [place] [address] Care Team Providers Care Cable Television Access Coordinator Name Role Phone Dawson Hartman MD Primary Care Provider [phone] Allergies Active Allergy Reactions Criticality Noted Date [...] 71 01/06/2018 7:05 PM CDT Temperature 36.6 C (97.8 F) 01/06/2018 7:05 PM CDT Respiratory Rate 16 01/06/2018 7:05 PM CDT [...] age to complete this topic [place] [address] MED[facility]ID [facility] Care Teams Cable Television Access Coordinator Relationship Specialty Start Date End Date Dawson Hartman MD [address] [address] PCP - General FAMILY PRACTICE 10/16/16
[2024-07-07 15:38] VITALS: BP 152/77; PULSE 87; RESP 18; TEMP 36.6; O2SAT 98
--- OUTSIDE RECORDS SUMMARY | 2024-07-07 16:17 | XMS_ITS | Clinical Summary ---
Author Organization [facility] Address [address] [place] [address] Care Team Providers Care Copper Miner Name Role Phone Dawson Hartman MD Primary Care Provider [phone] Allergies Active Allergy Reactions Criticality Noted Date [...] to complete this topic [place] [address] MEDICAID [facility] MEDICARE Care Teams Copper Miner Relationship Specialty Start Date End Date Dawson Hartman MD [address] [address] PCP - General FAMILY PRACTICE 10/16/16
--- OUTSIDE RECORDS SUMMARY | 2024-07-07 16:17 | XMS_ITS | Clinical Summary ---
Author Organization [facility] Address [address] [place] [address] Care Team Providers Care Back Shoe Cutter Name Role Phone Derick Ellis MD Primary Care Provider [phone] Source Comments [facility],non-owned Affiliates and Associated Physician Practices is amultiple site organization consisting of ambulatory clinics and hospital sitesin [place], [place], [place] and [place]. This disclosure is being madepursuant to the Care Everywhere program and may not contain all information available regarding this patient. Last updated 18.[facility] Allergies Active Allergy Reactions Criticality Noted Date [...] age to complete this topic Care Teams Back Shoe Cutter Relationship Specialty Start Date End Date Derick Ellis MD [address] [facility] [address] [place] [address] PCP - General 10/02/19
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
[2024-07-07 16:21] LABS: Influenza A QL RT-PCR Negative (Negative); Influenza B QL RT-PCR Negative (Negative); RSV RNA, RT-PCR Positive (Negative); SARS-CoV-2 RNA PCR Negative (Negative)
[2024-07-07 16:28] LABS: Basophils Percent Auto 0.5 % (0.2-1.2); Eosinophils Percent Auto 0.3 % (0-4.4); Hematocrit 45.6 % (42.0-52.0); Hemoglobin 15.5 g/dL (14.0-18.0); Immature Granulocyte Absolute 0.07 K/mm3 (0.00-0.031); Immature Granulocyte Percent A 0.9 % (0-0.5); Lymphocytes Absolute Auto 0.91 K/mm3 (0.9-3.2); Lymphocytes Percent Auto 12.3 % (18.3-44.2); Mean Corpuscular Volume 94.2 fl (80-100); Mean Platelet Volume 8.9 fl (7.4-10.4); Monocytes Absolute Auto 0.6 K/mm3 (0.1-0.6); Monocytes Percent Auto 7.8 % (2.6-8.5); Neutrophils Absolute Auto 5.8 K/mm3 (1.3-6.7); Neutrophils Percent Auto 78.2 % (45.5-73.1); Platelet Count Result 235 k/mm3 (150-375); Red Blood Count 4.84 M/mm3 (4.6-6.20); Red Cell Distribution Width 12.7 % (11.5-14.5); White Blood Count 7.4 K/mm3 (4.5-10.0)
[2024-07-07 16:29] LABS: Add Urine Microscopic? NO; Appearance Urine Clear (Clear); Bilirubin Urine Negative (Negative); Blood Urine Negative (Negative); Color Urine Yellow (Yellow); Glucose Urine UA 3+ mg/dL (Negative); Ketones Urine Trace mg/dL (Negative); Leukocyte Esterase Ur Negative LEU/UL (Negative); Nitrate Urine Negative (Negative); Protein Urine Negative (Negative); Specific Grav Ur 1.037 (1.001-1.035); pH Urine 5.5 (5.0-9.0)
[2024-07-07 16:38] LABS: Anion Gap 10 mmol/L (4-12); Blood Urea Nitrogen 22 mg/dL (9-20); Calcium 9.8 mg/dL (8.4-10.2); Carbon Dioxide 29 mmol/L (22-30); Chloride 95 mmol/L (98-107); Estimated CRCL calculation 115 ml/min; Estimated Glomerular Filt Rate > 60; Glucose 435 mg/dL (65-110); Sodium 134 mmol/L (137-145)
[2024-07-07] MEDS: SODIUM CHLORIDE 0.9% IV 1,000 ML 999 ML IV CONT (17:03)
== END 2024-07-07 19:04 | disposition home or self-care (01) ==
PROVIDERS: Emergency Medicine; Emergency Provider Physician Assistant; PCP Family Medicine
DX: J20.5 Acute bronchitis due to respiratory syncytial virus (principal); E11.65 Type 2 diabetes mellitus with hyperglycemia; E86.0 Dehydration; Z20.822 Contact with and (suspected) exposure to COVID-19; E66.01 Morbid (severe) obesity due to excess calories; Z68.39 Body mass index [BMI] 39.0-39.9, adult; E78.5 Hyperlipidemia, unspecified; M19.012 Primary osteoarthritis, left shoulder; M19.011 Primary osteoarthritis, right shoulder; M47.812 Spondylosis without myelopathy or radiculopathy, cervical region; M47.816 Spondylosis without myelopathy or radiculopathy, lumbar region; G47.33 Obstructive sleep apnea (adult) (pediatric); F41.9 Anxiety disorder, unspecified; F17.290 Nicotine dependence, other tobacco product, uncomplicated; Z79.4 Long term (current) use of insulin; Z79.84 Long term (current) use of oral hypoglycemic drugs; Z79.899 Other long term (current) drug therapy
CPT/HCPCS: 36415; 71046; 80048; 81003; 85025; 87637; 96360; 99283; J7030

== ENCOUNTER 2024-07-13 09:08 | Emergency (ER) | payer MEDICARE, MEDICAID, SELFPAY ==
--- NOTE | ~2024-07-13 | XR_ITS ---
EXAMINATION: XR chest 2V 07/13/2024 09:51 INDICATION: Cough and wheezing. RSV positive. PROCEDURE: 2 view chest COMPARISON: No prior studies for comparison. FINDINGS: The lungs are clear. The cardiomediastinal silhouette is within normal limits. There are no pleural effusions. There is no pneumothorax suspected. IMPRESSION: 1: NO ACUTE CARDIOPULMONARY DISEASE. Reviewed, dictated and finalized at location A.
[2024-07-13 09:13] VITALS: BP 140/70; PULSE 94; RESP 18; TEMP 36.1; O2SAT 97
--- OUTSIDE RECORDS SUMMARY | 2024-07-13 09:33 | XMS_ITS | Clinical Summary ---
Author Organization [facility] Address [address] [place] [address] Care Team Providers Care Cissp Name Role Phone Dawson Hartman MD Primary Care Provider [phone] Allergies Active Allergy Reactions Criticality Noted Date [...] to complete this topic [place] [address] [facility] Care Teams Cissp Relationship Specialty Start Date End Date Dawson Hartman MD [address] [address] PCP - General FAMILY PRACTICE 10/16/16
--- OUTSIDE RECORDS SUMMARY | 2024-07-13 09:33 | XMS_ITS | Clinical Summary ---
Author Organization [facility] Address [address] [address] Care Team Providers Care Public Service Officer Name Role Phone Derick Ellis MD Primary Care Provider [phone] Source Comments [facility],non-owned Affiliates and Associated Physician Practices is amultiple site organization consisting of ambulatory clinics and hospital sitesin [place], [place], [place] and [place]. This disclosure is being madepursuant to the Care Everywhere program and may not contain all information available regarding this patient. Last updated 18.[employer] [facility] Allergies Active Allergy Reactions Criticality Noted Date [...] age to complete this topic Care Teams Public Service Officer Relationship Specialty Start Date End Date Derick Ellis MD [address] [facility] [address] [place] [address] PCP - General 10/02/19
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
[2024-07-13] MEDS: ALBUTEROL SULFATE NEB 2.5 MG/3 ML INH INHALATION (10:03)
[2024-07-13 10:07] VITALS: PULSE 77; RESP 22; O2SAT 96
[2024-07-13 10:23] VITALS: PULSE 91; RESP 22; O2SAT 99
== END 2024-07-13 10:35 | disposition home or self-care (01) ==
PROVIDERS: Emergency Provider Nurse Practitioner Family; PCP Family Medicine
DX: J40 Bronchitis, not specified as acute or chronic (principal); H66.003 Acute suppurative otitis media without spontaneous rupture of ear drum, bilateral; F17.290 Nicotine dependence, other tobacco product, uncomplicated; E11.9 Type 2 diabetes mellitus without complications; Z79.4 Long term (current) use of insulin; Z79.84 Long term (current) use of oral hypoglycemic drugs; E78.5 Hyperlipidemia, unspecified; M19.012 Primary osteoarthritis, left shoulder; M19.011 Primary osteoarthritis, right shoulder; E66.01 Morbid (severe) obesity due to excess calories; Z68.39 Body mass index [BMI] 39.0-39.9, adult; M47.812 Spondylosis without myelopathy or radiculopathy, cervical region; M47.816 Spondylosis without myelopathy or radiculopathy, lumbar region
CPT/HCPCS: 71046; 94640; 99213; G0463

== ENCOUNTER 2024-08-20 17:53 | Emergency (ER) | payer MEDICARE, MEDICAID, SELFPAY ==
[2024-08-20 17:54] VITALS: BP 148/78; PULSE 90; RESP 18; TEMP 36.6; O2SAT 97
--- OUTSIDE RECORDS SUMMARY | 2024-08-20 17:54 | XMS_ITS | Clinical Summary ---
Author Organization [email or web address] Address [address] [place] [address] Care Team Providers Care Associate Director Regulatory Affairs Name Role Phone Derick Ellis MD Primary Care Provider [phone] Source Comments [facility],non-owned Affiliates and Associated Physician Practices is amultiple site organization consisting of ambulatory clinics and hospital sitesin [place], [place], [place] and [place]. This disclosure is being madepursuant to the Care Everywhere program and may not contain all information available regarding this patient. Last updated 18.[facility] Allergies Active Allergy Reactions Criticality Noted Date Comments Contrast-Iodinated Agents For Ct/Other Anaphylaxis High 09/16/2015 Medications * Be aware that medications may not be up to date on this document. Alwaysverify current medications with the patient. glipiZIDE (GLUCOTROL) 5 MG tabletIndicatio ns:Type 2 Diabetes Mellitus Take 5 mg by mouth daily before breakfast Reasons: Type 2 Diabetes Active traMADol (ULTRAM) 50 MG tablet Take 1 Tab by mouth every 4 hours as needed for Pain 6 Tab 0 6 Active ondansetron (ZOFRAN) 4 MG tablet Take 1 Tab by mouth every 4 hours as needed for Nausea/Vomitin g 10 Tab 0 6 Active atorvastatin (LIPITOR) 20 MG tablet Take 20 mg by mouth once daily 0 Active Blood Glucose Monitoring Suppl (ONE TOUCH ULTRA 2) w/Device KIT as directed 0 Active glipiZIDE (GLUCOTROL) 5 MG tablet Take 5 mg by mouth once daily 0 Active HYDROcodone-karthik taminophen (NORCO) 5-325 MG tablet Take 1 tablet by mouth every 8 hours as needed For pain. 0 Active ONETOUCH DELICA PLUS 30G EXTRA FINE LANCETS USE TWICE DAILY BEFORE MEALS 0 Active metFORMIN ER 24hr (GLUCOPHAGE XR) 500 MG tablet TAKE 1 TABLET BY MOUTH EVERY DAY INCREASE DOSE BY 500MG WEEKLY TO 1000MG TWICE A DAY 0 Active pioglitazone (ACTOS) 45 MG tablet Take 45 mg by mouth once daily 0 Active JANUVIA 100 MG tablet Take 100 mg by mouth once daily 0 Active Active Problems Problem Noted Date Diagnosed [...] at Not on file Legal Sex Male 10:03 PM CDT Gender Identity Not on file Sexual [...] FLEX SIG - COLON CA SCREENING 1975 HIV SCREENING 1991 HEPATITIS C SCREENING 05/08/1994 DTAP/TDAP/TD VACCINES (1 - Tdap) 1995 HEPATITIS B VACCINE (1 of 3 - 19+ 3-dose series) 1995 COVID-19 VACCINE (1 - 2023-2 5 season) 2023 DEPRESSION SCREENING 04/18/2024 INFLUENZA VACCINE (Season Ended) 2024 ZOSTER VACCINE (1 of 2) 2026 HIB [...] patient's age to complete this topic Insurance * Guarantor: ROBIN ROME Account Type Relation to Patient Date of Phone Billing Address Personal/Family 1975 ([place]) [address] [place] [address] MEDICARE MEDICAID - OUT OF [facility] MEDICARE MEDICAID - [facility] MEDICARE MEDICAID - [place] [facility] Care Teams Associate Director Regulatory Affairs Relationship Specialty Start Date End Date Derick Ellis MD [address] [place] [address] PCP - General 10/02/19
--- OUTSIDE RECORDS SUMMARY | 2024-08-20 17:54 | XMS_ITS | Clinical Summary ---
Author Organization [facility] Address [address] [place] [address] Care Team Providers Care Hatchery Laborer Name Role Phone Dawson Hartman MD Primary Care Provider Allergies Active Allergy Reactions Criticality Noted Date [...] Colonoscopy (10 Years) 1976 Annual Physical 1979 DTaP, Tdap and Td Vaccines ( 2 - Tdap) 09/21/1990 09/20/1990 Hepatitis C 1994 Pneumococcal Vaccine: Pediatrics (0 to 5 Years) and At-Risk Patients (6 to 49 Years) (1 of 2 - PCV) 1995 Hepatitis B Vaccines (3 of 3 - 19+ 3-dose series) 09/29/2010 08/04/2010, 08/04/2009 COVID-19 Vaccine ( - 2023-2 5 season) 2023 Meningococcal B Vaccine Aged Out No l onger eligible based on patient's age to complete this topic Meningococcal Vaccine Aged Out No mathieu lana eligible based on patient's age to complete this topic RSV Immunizations Under 20 Months Aged Out No longer eligible b ased on patient's age to complete this topic Insurance MEDICAID MEDICAID [place] MEDICARE Care Teams Hatchery Laborer Relationship Specialty Start Date End Date Dawson Hartman MD [address] [place] [address] PCP - General FAMILY PRACTICE 10/16/16
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
--- OUTSIDE RECORDS SUMMARY | 2024-08-20 18:45 | XMS_ITS | Clinical Summary ---
Author Organization [facility] Address [address] [place] [address] Care Team Providers Care Insurance Follow Up Specialist Name Role Phone Derick Ellis MD Primary Care Provider [phone] Source Comments [facility] [employer],non-owned Affiliates and Associated Physician Practices is amultiple site organization consisting of ambulatory clinics and hospital sitesin [place], [place], [place] and [place]. This disclosure is being madepursuant to the Care Everywhere program and may not contain all information available regarding this patient. Last updated 18.[facility] Allergies Active Allergy Reactions Criticality Noted Date [...] Date of Phone Billing Address Personal/Family 1975 ([place]) [address] [place] [address] MEDICARE MEDICAID - OUT OF [facility] MEDICARE MEDICAID - [facility] MEDICARE [place] - [place] [facility] Care Teams Insurance Follow Up Specialist Relationship Specialty Start Date End Date Derick Ellis MD [address] [place] [address] PCP - General 10/02/19
--- OUTSIDE RECORDS SUMMARY | 2024-08-20 18:45 | XMS_ITS | Clinical Summary ---
Author Organization [facility] Address [address] [place] [address] Care Team Providers Care Clutch Assembler Name Role Phone Dawson Hartman MD Primary Care Provider [phone] Allergies Active Allergy Reactions Criticality Noted Date [...] to complete this topic Insurance MEDICAID MEDICAID [place] MEDICARE Care Teams Clutch Assembler Relationship Specialty Start Date End Date Dawson Hartman MD [address] [place] [address] PCP - General FAMILY PRACTICE 10/16/16
[2024-08-20] MEDS: TETANUS,DIPHTHERIA,AC PERTUSSIS ADULT (0.5 ML) BOOSTRIX IM (19:53)
== END 2024-08-20 19:59 | disposition home or self-care (01) ==
LOC: ANHED 18:43
PROVIDERS: Emergency Provider Physician Assistant; PCP Family Medicine
DX: S61.203A Unspecified open wound of left middle finger without damage to nail, initial encounter (principal); S61.205A Unspecified open wound of left ring finger without damage to nail, initial encounter; X58.XXXA Exposure to other specified factors, initial encounter; G47.33 Obstructive sleep apnea (adult) (pediatric); E11.9 Type 2 diabetes mellitus without complications; E78.5 Hyperlipidemia, unspecified; F17.290 Nicotine dependence, other tobacco product, uncomplicated; Z23 Encounter for immunization
CPT/HCPCS: 90471; 90715; 99282